=== PATIENT | male | born 1955 | race Caucasian/White ===

== ENCOUNTER 2018-09-25 10:42 | Inpatient (IN) | payer MEDICAID ==
[2018-09-25] VITALS (11 sets, daily range): BP systolic 95–116; BP diastolic 48–60
[~2018-09-25] VITALS: Ht 170.2 cm; Wt 48.6 kg
[2018-09-25] MEDS ORDERED: SODIUM CHLORIDE 0.9% 1,000 ML IV ONE ×2 (11:31→13:12)
[2018-09-25 12:19] LABS: CLARITY URINE TURBID (CLEAR); COLOR URINE AMBER (YELLOW); KETONES URINE NEGATIVE (NEGATIVE); LEUKOCYTE ESTERASE URINE 3+ (NEGATIVE); NITRITE URINE NEGATIVE (NEGATIVE); OCCULT BLOOD URINE 3+ (NEGATIVE); PH URINE 8.5 (4.5-8.0); PROTEIN URINE 3+ (NEGATIVE); SPECIFIC GRAVITY URINE 1.015 (1.005-1.030)
[2018-09-25] MEDS ORDERED: VANCOMYCIN 1 G PREMIX 200 ML IV ONE (12:30)
[2018-09-25] MEDS ORDERED: SODIUM CHLORIDE 0.9% 1000ML BAG (SEPSIS BOLUS) IV ONE (12:30)
[2018-09-25] MEDS ORDERED: PIPERACILLIN/TAZ 3.375G PREMIX 50 ML IV ONE (12:30)
[2018-09-25 13:02] LABS: HEMATOCRIT. 34.7 % (42.0-52.0); HEMOGLOBIN. 11.7 g/dL (14.0-18.0); MEAN CORPUSCULAR VOLUME 91.5 fL (80.0-94.0); MEAN PLATELET VOLUME 8.7 fl (7.4-10.4); RED BLOOD CELL COUNT 3.79 mill/uL (4.7-6.1); RED CELL DISTRIBUTION WIDTH 15.5 % (11.6-14.6)
[2018-09-25 13:05] LABS: CHLORIDE 106 mEq/L (98-107)
[2018-09-25 13:06] LABS: INR 1.3; PROTHROMBIN TIME 12.7 sec (9.1-11.1)
[2018-09-25 13:09] LABS: ETHANOL BLOOD < 10 mg/dL
[2018-09-25 13:09] LABS: *AMPHETAMINES SCREEN URINE NEGATIVE (NEGATIVE); *BARBITURATES SCREEN URINE NEGATIVE (NEGATIVE); CANNABINOID URINE SCREEN NEGATIVE (NEGATIVE); METHADONE URINE SCREEN NEGATIVE (NEGATIVE); OPIATES URINE SCREEN NEGATIVE (NEGATIVE); PHENCYCLIDINE URINE SCREEN NEGATIVE (NEGATIVE)
[2018-09-25 13:11] LABS: *BENZODIAZEPINES SCREEN URINE NEGATIVE (NEGATIVE)
[2018-09-25 13:12] LABS: *COCAINE SCREEN URINE NEGATIVE (NEGATIVE)
[2018-09-25 13:41] LABS: PLATELET ESTIMATE DECREASED
[2018-09-25 13:48] LABS: PLATELET 71 x1000/uL (130-400)
[2018-09-25] MEDS ORDERED: CEFEPIME 1,000 MG in DEXTROSE 5% WATER 50 ML IV SCH (15:30)
[2018-09-25] MEDS ORDERED: NOREPINEPHRINE 4MG/250ML PMX 250 ML IV SCH (15:30)
[2018-09-25] MEDS ORDERED: ONDANSETRON HCL 4MG/2ML INJ IV PRN (15:30)
[2018-09-25] MEDS ORDERED: DEXT 5%/0.45% NACL 1000ML 1,000 ML IV SCH (15:30)
[2018-09-25] MEDS ORDERED: NOREPINEPHRINE 4 MG in DEXT 5% WATER 246 ML IV ONE (15:45)
[2018-09-25] MEDS ORDERED: ACETAMINOPHEN 650MG SUPP PR PRN (17:00)
[2018-09-25] MEDS ORDERED: IPRATROPIUM/ALBUTEROL 0.5-3(2.5)MG/3ML NEB HHN PRN (17:00)
[2018-09-25] MEDS ORDERED: TRUVADA NG SCH (17:15)
[2018-09-25 18:01] LABS: BG BASE EXCESS -8.8 mmol/L (-2.0-2.0); BG DEOXYHEMOGLOBIN 3.4 % (0.0-5.0); BG FRACTION INSPIRED OXYGEN 21; BG HCO3 ACT 14.3 mmol/L (22.0-26.0); BG METHEMOGLOBIN 0.3 % (0.0-1.5); BG OXYGEN SATURATION 96.6 % (92.0-98.5); BG OXYHEMOGLOBIN 95.3 % (94.0-97.0); BG PCO2 24.3 mmHg (35.0-45.0); BG PH 7.388 (7.350-7.450); BG PO2 86.8 mmHg (75.0-100.0); BG SAMPLE SITE RIGHT RADIAL; BG TOTAL HEMOGLOBIN 13.1 g/dL (12.0-18.0); BG VENT MODE ROOM AIR
[2018-09-25] MEDS: MIDODRINE HCL 5MG TABLET PO SCH (21:27)
[2018-09-25] MEDS ORDERED: DEXT 5%/0.9% NACL KCL 30MEQ/L 1,000 ML IV SCH (22:00)
[2018-09-25] MEDS ORDERED: NOREPINEPHRINE 32 MG in DEXT 5% WATER 468 ML IV SCH (22:00)
[2018-09-25] MEDS ORDERED: CEFEPIME 500 MG in DEXTROSE 5% WATER 50 ML IV SCH (23:00)
[2018-09-25] MEDS: BACLOFEN 10MG TABLET NG SCH (23:56)
[2018-09-26] VITALS (56 sets, daily range): BP systolic 82–143; BP diastolic 42–95
[2018-09-26] MEDS: POTASSIUM CHLORIDE INJ 30 MEQ in DEXT 5%/0.9% NACL 1,000 ML IV SCH ×3 (00:58→20:04)
[2018-09-26 05:48] LABS: HEMATOCRIT. 37.1 % (42.0-52.0); HEMOGLOBIN. 12.3 g/dL (14.0-18.0); MEAN CORPUSCULAR HEMOGLOBIN 30.1 pg (28.0-32.0); MEAN CORPUSCULAR VOLUME 90.5 fL (80.0-94.0); MEAN PLATELET VOLUME 8.7 fl (7.4-10.4); PLATELET 82 x1000/uL (130-400); RED CELL DISTRIBUTION WIDTH 15.8 % (11.6-14.6)
[2018-09-26] MEDS: BACLOFEN 10MG TABLET NG SCH ×3 (06:16→22:00)
[2018-09-26 06:19] LABS: PHOSPHORUS 3.8 mg/dL (2.5-4.9)
[2018-09-26] MEDS ORDERED: MIDODRINE HCL 5MG TABLET PO ONE (06:30)
[2018-09-26] MEDS: IPRATROPIUM/ALBUTEROL 0.5-3(2.5)MG/3ML NEB HHN SCH ×3 (07:40→20:24)
[2018-09-26 07:45] LABS: PLATELET ESTIMATE DECREASED
[2018-09-26] MEDS: PANTOPRAZOLE 40MG DR TABLET PO SCH (07:50)
[2018-09-26] MEDS: MIDODRINE HCL 5MG TABLET PO SCH ×3 (08:58→23:10)
[2018-09-26] MEDS ORDERED: PANTOPRAZOLE SODIUM 40 MG/VIAL IV SCH (09:00)
[2018-09-26] MEDS ORDERED: VANCOMYCIN 1 G PREMIX 200 ML IV SCH (11:00)
[2018-09-26] MEDS ORDERED: TRUVADA TABLET NG SCH (14:30)
[2018-09-26] MEDS: ENOXAPARIN 60MG/0.6ML SYR SUBCUT SCH (14:43)
[2018-09-26] MEDS: MORPHINE SULFATE 4 MG/ML CPJ (NOT FOR IM USE) IV PRN (15:56)
[2018-09-26] MEDS: LORAZEPAM 2MG/ML CPJ IV PRN (17:45)
[2018-09-26] MEDS: CEFEPIME 1,000 MG in DEXTROSE 5% WATER 50 ML IV SCH (20:05)
[2018-09-27] VITALS (38 sets, daily range): BP systolic 90–166; BP diastolic 43–107
[2018-09-27] MEDS: IPRATROPIUM/ALBUTEROL 0.5-3(2.5)MG/3ML NEB HHN SCH ×4 (01:25→20:15)
[2018-09-27 06:32] LABS: HEMATOCRIT. 38.6 % (42.0-52.0); HEMOGLOBIN. 12.6 g/dL (14.0-18.0); MEAN CORPUSCULAR VOLUME 92.2 fL (80.0-94.0); MEAN PLATELET VOLUME 9.2 fl (7.4-10.4); PLATELET 75 x1000/uL (130-400); RED BLOOD CELL COUNT 4.19 mill/uL (4.7-6.1); RED CELL DISTRIBUTION WIDTH 16.3 % (11.6-14.6)
[2018-09-27] MEDS: VANCOMYCIN 750 MG PREMIX 150 ML IV SCH (07:00)
[2018-09-27] MEDS: BACLOFEN 10MG TABLET NG SCH ×3 (07:01→21:17)
[2018-09-27] MEDS: MIDODRINE HCL 5MG TABLET PO SCH ×3 (07:02→21:17)
[2018-09-27 07:06] LABS: FOLIC ACID (FOLATE) SERUM 4.3 ng/mL (>5.38)
[2018-09-27] MEDS: PANTOPRAZOLE 40MG DR TABLET PO SCH (07:50)
[2018-09-27 08:17] LABS: PLATELET ESTIMATE DECREASED
[2018-09-27] MEDS: POTASSIUM CHLORIDE INJ 30 MEQ in DEXT 5%/0.9% NACL 1,000 ML IV SCH (08:55)
[2018-09-27 09:10] LABS: ABSOLUTE EOSINOPHILS 0.2 x10E3/uL (0.0-0.4); ABSOLUTE LYMPHOCYTES 0.5 x10E3/uL (0.7-3.1); ABSOLUTE MONOCYTES 0.8 x10E3/uL (0.1-0.9); BASOPHILS 0 % (Not Estab.); HEMATOCRIT 35.3 % (37.5-51.0); HEMATOLOGY COMMENT Note: (.); HEMOGLOBIN 12.2 g/dL (13.0-17.7); IMMATURE GRANULOCYTES 1 % (Not Estab.); IMMATURE GRANULOCYTES ABSOLUTE 0.1 x10E3/uL (0.0-0.1); LYMPHOCYTES 3 % (Not Estab.); MEAN CORPUSCULAR HEMOGLOBIN 30.2 pg (26.6-33.0); MEAN CORPUSCULAR HGB CONC. 34.6 g/dL (31.5-35.7); MEAN CORPUSCULAR VOLUME 87 fL (79-97); MONOCYTES 6 % (Not Estab.); NEUTROPHILS 89 % (Not Estab.); PLATELETS 89 x10E3/uL (150-379); RBC 4.04 x10E6/uL (4.14-5.80); RED CELL DISTRIBUTION WIDTH 16.2 % (12.3-15.4); WBC 14.5 x10E3/uL (3.4-10.8)
[2018-09-27] MEDS: PANTOPRAZOLE SODIUM 40 MG/VIAL IV SCH (09:51)
[2018-09-27] MEDS: LORAZEPAM 2MG/ML CPJ IV PRN (11:15)
[2018-09-27 13:11] LABS: % CD 3 POS. LYMPHOCYTES 64.1 % (57.5-86.2); % CD 4 POS. LYMPHOCYTES 17.2 % (30.8-58.5); % CD 8 POS. LYMPH 45.7 % (12.0-35.5); ABSOLUTE CD 3 321 /uL (622-2402); ABSOLUTE CD 4 HELPER 86 /uL (359-1519); ABSOLUTE CD 8 SUPPRESSOR 229 /uL (109-897); CD4/CD8 RATIO 0.38 (0.92-3.72)
[2018-09-27] MEDS: POTASSIUM CHLORIDE INJ 30 MEQ, SODIUM BICARBONATE 50 MEQ in DEXTROSE 5% WATER 1,000 ML IV SCH (13:26)
[2018-09-27] MEDS: ENOXAPARIN 60MG/0.6ML SYR SUBCUT SCH (15:00)
[2018-09-27] MEDS ORDERED: ASCORBIC ACID 500MG/5ML 120ML PO SCH (15:00)
[2018-09-27] MEDS: ZINC SULFATE 220 MG ( 50 ) CAPSULE PO SCH (16:58)
[2018-09-27] MEDS: FOLIC ACID 1MG TABLET PO SCH (16:58)
[2018-09-27] MEDS: ASCORBIC ACID 500 MG TABLET NG SCH (16:58)
[2018-09-27] MEDS: THIAMINE HCL 100MG TABLET PO SCH (16:59)
[2018-09-27] MEDS: FOLIC ACID/VITAMIN B COMP W-C TABLET NG SCH (16:59)
[2018-09-27] MEDS: CEFEPIME 1,000 MG in DEXTROSE 5% WATER 50 ML IV SCH (20:59)
[2018-09-27] MEDS: MORPHINE SULFATE 4 MG/ML CPJ (NOT FOR IM USE) IV PRN (21:48)
[2018-09-28] VITALS (77 sets, daily range): BP systolic 104–155; BP diastolic 48–101
[2018-09-28] MEDS: POTASSIUM CHLORIDE INJ 30 MEQ, SODIUM BICARBONATE 50 MEQ in DEXTROSE 5% WATER 1,000 ML IV SCH (00:27)
[2018-09-28] MEDS: VANCOMYCIN 750 MG PREMIX 150 ML IV SCH ×2 (00:27→17:30)
[2018-09-28] MEDS: IPRATROPIUM/ALBUTEROL 0.5-3(2.5)MG/3ML NEB HHN SCH ×4 (01:06→20:02)
[2018-09-28] MEDS: BACLOFEN 10MG TABLET NG SCH ×3 (05:39→22:05)
[2018-09-28] MEDS: MIDODRINE HCL 5MG TABLET PO SCH ×3 (05:41→22:05)
[2018-09-28 05:45] LABS: HEMOGLOBIN. 11.3 g/dL (14.0-18.0); MEAN CORPUSCULAR HEMOGLOBIN 30.3 pg (28.0-32.0); MEAN CORPUSCULAR VOLUME 91.2 fL (80.0-94.0); MEAN PLATELET VOLUME 8.6 fl (7.4-10.4); PLATELET 54 x1000/uL (130-400); RED BLOOD CELL COUNT 3.73 mill/uL (4.7-6.1); RED CELL DISTRIBUTION WIDTH 16.4 % (11.6-14.6)
[2018-09-28 05:56] LABS: INR 1.2; PROTHROMBIN TIME 11.7 sec (9.1-11.1)
[2018-09-28 06:14] LABS: PHOSPHORUS 1.2 mg/dL (2.5-4.9)
[2018-09-28 06:58] LABS: PLATELET ESTIMATE DECREASED
[2018-09-28] MEDS: DEXT 5%/0.2% NACL 1,000 ML IV SCH ×2 (08:45→22:07)
[2018-09-28] MEDS: THIAMINE HCL 100MG TABLET PO SCH (09:00)
[2018-09-28] MEDS: ZINC SULFATE 220 MG ( 50 ) CAPSULE PO SCH (09:00)
[2018-09-28] MEDS: FOLIC ACID 1MG TABLET PO SCH (09:00)
[2018-09-28] MEDS: FOLIC ACID/VITAMIN B COMP W-C TABLET NG SCH (09:00)
[2018-09-28] MEDS: ASCORBIC ACID 500 MG TABLET NG SCH (09:00)
[2018-09-28] MEDS ORDERED: POTASSIUM PHOS,M-BASIC-D-BASIC 30 MMOL in DEXT 5% WATER 500 ML IV NR (10:00)
[2018-09-28] MEDS: PANTOPRAZOLE SODIUM 40 MG/VIAL IV SCH (10:25)
[2018-09-28] MEDS ORDERED: SODIUM CHLORIDE 0.9% 10ML VIAL ONE (10:28)
[2018-09-28] MEDS ORDERED: SIMETHICONE 40 MG/0.6 ML 30ML ONE (10:28)
[2018-09-28] MEDS ORDERED: MIDAZOLAM HCL 5 MG/5 ML VIAL ONE (11:20)
[2018-09-28] MEDS ORDERED: FENTANYL CITRATE/PF 50MCG/ML 2ML VIAL ONE (11:21)
[2018-09-28] MEDS ORDERED: MIDAZOLAM HCL 5 MG/5 ML VIAL IV PRN (11:50)
[2018-09-28] MEDS: MORPHINE SULFATE 4 MG/ML CPJ (NOT FOR IM USE) IV PRN (12:51)
[2018-09-28] MEDS: ENOXAPARIN 60MG/0.6ML SYR SUBCUT SCH (15:00)
[2018-09-28] MEDS: MEROPENEM 500 MG in SODIUM CHLORIDE 0.9% 50 ML IV SCH ×2 (15:19→22:05)
[2018-09-29] VITALS (19 sets, daily range): BP systolic 118–154; BP diastolic 60–77
[2018-09-29] MEDS: IPRATROPIUM/ALBUTEROL 0.5-3(2.5)MG/3ML NEB HHN SCH ×4 (01:22→22:24)
[2018-09-29 05:59] LABS: HEMATOCRIT. 34.8 % (42.0-52.0); HEMOGLOBIN. 11.6 g/dL (14.0-18.0); MEAN CORPUSCULAR HEMOGLOBIN 30.3 pg (28.0-32.0); MEAN PLATELET VOLUME 8.9 fl (7.4-10.4); RED BLOOD CELL COUNT 3.82 mill/uL (4.7-6.1); RED CELL DISTRIBUTION WIDTH 16.2 % (11.6-14.6)
[2018-09-29] MEDS: BACLOFEN 10MG TABLET NG SCH ×3 (06:03→21:43)
[2018-09-29] MEDS: MEROPENEM 500 MG in SODIUM CHLORIDE 0.9% 50 ML IV SCH ×3 (06:03→21:51)
[2018-09-29] MEDS: MIDODRINE HCL 5MG TABLET PO SCH ×3 (06:04→21:44)
[2018-09-29 06:23] LABS: PLATELET 41 x1000/uL (130-400)
[2018-09-29 06:25] LABS: PHOSPHORUS 2.2 mg/dL (2.5-4.9)
[2018-09-29] MEDS: ENOXAPARIN 60MG/0.6ML SYR SUBCUT SCH ×2 (09:50→21:43)
[2018-09-29] MEDS: PANTOPRAZOLE SODIUM 40 MG/VIAL IV SCH (09:51)
[2018-09-29] MEDS: ASCORBIC ACID 500 MG TABLET NG SCH (09:51)
[2018-09-29] MEDS: ZINC SULFATE 220 MG ( 50 ) CAPSULE PO SCH (09:51)
[2018-09-29] MEDS: FOLIC ACID 1MG TABLET PO SCH (09:51)
[2018-09-29] MEDS: SULFAMETHOXAZOLE/TRIMETHOPRIM 800/160MG TABLET GT SCH (09:51)
[2018-09-29] MEDS: THIAMINE HCL 100MG TABLET PO SCH (09:51)
[2018-09-29] MEDS: FOLIC ACID/VITAMIN B COMP W-C TABLET NG SCH (09:51)
[2018-09-29 10:33] LABS: PLATELET ESTIMATE MARKEDLY DECREASED
[2018-09-29] MEDS: DEXT 5%/0.2% NACL 1,000 ML IV SCH (12:24)
[2018-09-29] MEDS: VANCOMYCIN 750 MG PREMIX 150 ML IV SCH (12:30)
[2018-09-30] VITALS (7 sets, daily range): BP systolic 103–146; BP diastolic 59–72
[2018-09-30] MEDS: DEXT 5%/0.2% NACL 1,000 ML IV SCH ×3 (01:39→20:52)
[2018-09-30] MEDS: IPRATROPIUM/ALBUTEROL 0.5-3(2.5)MG/3ML NEB HHN SCH ×5 (01:55→20:06)
[2018-09-30] MEDS: BACLOFEN 10MG TABLET NG SCH ×3 (06:10→23:37)
[2018-09-30] MEDS: MIDODRINE HCL 5MG TABLET PO SCH ×3 (06:10→23:19)
[2018-09-30] MEDS: VANCOMYCIN 750 MG PREMIX 150 ML IV SCH (06:10)
[2018-09-30] MEDS: MEROPENEM 500 MG in SODIUM CHLORIDE 0.9% 50 ML IV SCH ×3 (06:10→23:20)
[2018-09-30 07:53] LABS: HEMATOCRIT. 33.5 % (42.0-52.0); HEMOGLOBIN. 11.3 g/dL (14.0-18.0); MEAN CORPUSCULAR HEMOGLOBIN 30.2 pg (28.0-32.0); MEAN CORPUSCULAR VOLUME 89.2 fL (80.0-94.0); MEAN PLATELET VOLUME 9.1 fl (7.4-10.4); PLATELET 70 x1000/uL (130-400); RED BLOOD CELL COUNT 3.75 mill/uL (4.7-6.1); RED CELL DISTRIBUTION WIDTH 15.5 % (11.6-14.6)
[2018-09-30 08:07] LABS: CHLORIDE 108 mEq/L (98-107)
[2018-09-30 08:13] LABS: PHOSPHORUS 1.5 mg/dL (2.5-4.9)
[2018-09-30] MEDS: PANTOPRAZOLE SODIUM 40 MG/VIAL IV SCH (09:06)
[2018-09-30] MEDS: THIAMINE HCL 100MG TABLET PO SCH (09:06)
[2018-09-30] MEDS: ASCORBIC ACID 500 MG TABLET NG SCH (09:06)
[2018-09-30] MEDS: ZINC SULFATE 220 MG ( 50 ) CAPSULE PO SCH (09:06)
[2018-09-30] MEDS: ENOXAPARIN 60MG/0.6ML SYR SUBCUT SCH ×2 (09:06→20:52)
[2018-09-30] MEDS: SULFAMETHOXAZOLE/TRIMETHOPRIM 800/160MG TABLET GT SCH (09:06)
[2018-09-30] MEDS: FOLIC ACID 1MG TABLET PO SCH (09:06)
[2018-09-30] MEDS: FOLIC ACID/VITAMIN B COMP W-C TABLET NG SCH (09:06)
[2018-09-30 10:28] LABS: PLATELET ESTIMATE DECREASED
[2018-09-30] MEDS ORDERED: POTASSIUM PHOS,M-BASIC-D-BASIC 30 MMOL in DEXT 5% WATER 500 ML IV NR (20:00)
[2018-09-30] MEDS ORDERED: DILTIAZEM HCL 125 MG in DEXT 5% WATER 100 ML IV PRN (22:00)
[2018-10-01] VITALS (10 sets, daily range): BP systolic 98–125; BP diastolic 50–63
[2018-10-01] MEDS: IPRATROPIUM/ALBUTEROL 0.5-3(2.5)MG/3ML NEB HHN SCH ×4 (01:52→21:11)
[2018-10-01] MEDS: MEROPENEM 500 MG in SODIUM CHLORIDE 0.9% 50 ML IV SCH ×3 (06:20→20:35)
[2018-10-01] MEDS: BACLOFEN 10MG TABLET NG SCH ×3 (06:20→20:31)
[2018-10-01] MEDS: MIDODRINE HCL 5MG TABLET PO SCH ×3 (06:21→20:30)
[2018-10-01 06:44] LABS: HEMATOCRIT. 30.7 % (42.0-52.0); HEMOGLOBIN. 10.4 g/dL (14.0-18.0); MEAN CORPUSCULAR HEMOGLOBIN 30.2 pg (28.0-32.0); MEAN CORPUSCULAR VOLUME 89.4 fL (80.0-94.0); MEAN PLATELET VOLUME 8.7 fl (7.4-10.4); PLATELET 102 x1000/uL (130-400); RED BLOOD CELL COUNT 3.43 mill/uL (4.7-6.1); RED CELL DISTRIBUTION WIDTH 15.9 % (11.6-14.6)
[2018-10-01 07:35] LABS: CHLORIDE 110 mEq/L (98-107)
[2018-10-01 07:43] LABS: PHOSPHORUS 4.5 mg/dL (2.5-4.9)
[2018-10-01] MEDS: FOLIC ACID 1MG TABLET PO SCH (09:41)
[2018-10-01] MEDS: FOLIC ACID/VITAMIN B COMP W-C TABLET NG SCH (09:41)
[2018-10-01] MEDS: ZINC SULFATE 220 MG ( 50 ) CAPSULE PO SCH (09:41)
[2018-10-01] MEDS: ASCORBIC ACID 500 MG TABLET NG SCH (09:41)
[2018-10-01] MEDS: SULFAMETHOXAZOLE/TRIMETHOPRIM 800/160MG TABLET GT SCH (09:41)
[2018-10-01] MEDS: THIAMINE HCL 100MG TABLET PO SCH (09:41)
[2018-10-01] MEDS: ENOXAPARIN 60MG/0.6ML SYR SUBCUT SCH ×2 (09:47→20:29)
[2018-10-01 13:20] LABS: PLATELET ESTIMATE DECREASED
[2018-10-01 13:28] LABS: T4 FREE 1.33 ng/dL (0.76-1.46)
[2018-10-01 13:51] LABS: FOLIC ACID (FOLATE) SERUM 17.1 ng/mL (>5.38)
[2018-10-01] MEDS: DILTIAZEM HCL 60MG TABLET PO SCH ×2 (13:55→20:31)
[2018-10-01] MEDS: DEXT 5%/0.2% NACL 1,000 ML IV SCH (16:40)
[2018-10-01] MEDS: PANTOPRAZOLE SODIUM 40 MG/VIAL IV SCH (16:40)
[2018-10-02] VITALS (9 sets, daily range): BP systolic 91–124; BP diastolic 48–67
[2018-10-02] MEDS: IPRATROPIUM/ALBUTEROL 0.5-3(2.5)MG/3ML NEB HHN SCH ×4 (00:54→21:17)
[2018-10-02] MEDS: DILTIAZEM HCL 60MG TABLET PO SCH (05:34)
[2018-10-02] MEDS: MIDODRINE HCL 5MG TABLET PO SCH ×3 (05:34→22:22)
[2018-10-02] MEDS: BACLOFEN 10MG TABLET NG SCH ×3 (05:34→22:22)
[2018-10-02] MEDS: MEROPENEM 500 MG in SODIUM CHLORIDE 0.9% 50 ML IV SCH ×3 (05:34→22:23)
[2018-10-02] MEDS: DEXT 5%/0.2% NACL 1,000 ML IV SCH (05:35)
[2018-10-02 07:25] LABS: BASOPHILS % 0.3 % (0.0-2.0); EOSINOPHILS % 1.8 % (0.0-5.0); HEMOGLOBIN. 9.7 g/dL (14.0-18.0); MEAN CORPUSCULAR HEMOGLOBIN 29.9 pg (28.0-32.0); MEAN CORPUSCULAR VOLUME 89.3 fL (80.0-94.0); MEAN PLATELET VOLUME 8.1 fl (7.4-10.4); MONOCYTES % 9.6 % (2.0-8.0); NEUTROPHILS % 71.3 % (40.0-76.0); PLATELET 151 x1000/uL (130-400); RED BLOOD CELL COUNT 3.25 mill/uL (4.7-6.1); RED CELL DISTRIBUTION WIDTH 15.6 % (11.6-14.6)
[2018-10-02 08:05] LABS: CHLORIDE 108 mEq/L (98-107)
[2018-10-02 08:16] LABS: PHOSPHORUS 2.5 mg/dL (2.5-4.9)
[2018-10-02] MEDS: FOLIC ACID/VITAMIN B COMP W-C TABLET NG SCH (09:39)
[2018-10-02] MEDS: SULFAMETHOXAZOLE/TRIMETHOPRIM 800/160MG TABLET GT SCH (09:39)
[2018-10-02] MEDS: ZINC SULFATE 220 MG ( 50 ) CAPSULE PO SCH (09:39)
[2018-10-02] MEDS: FOLIC ACID 1MG TABLET PO SCH (09:39)
[2018-10-02] MEDS: ASCORBIC ACID 500 MG TABLET NG SCH (09:39)
[2018-10-02] MEDS: PANTOPRAZOLE SODIUM 40 MG/VIAL IV SCH (09:39)
[2018-10-02] MEDS: THIAMINE HCL 100MG TABLET PO SCH (09:39)
[2018-10-02] MEDS: ENOXAPARIN 60MG/0.6ML SYR SUBCUT SCH ×2 (09:40→20:57)
[2018-10-02] MEDS ORDERED: POTASSIUM CHLORIDE 20MEQ TABLET SR PO SCH (11:45)
[2018-10-02] MEDS: LOSARTAN POTASSIUM 25 MG TABLET PO SCH (12:55)
[2018-10-02] MEDS: CARVEDILOL 3.125 MG TABLET PO SCH ×2 (12:55→20:57)
[2018-10-03] VITALS (9 sets, daily range): BP systolic 92–134; BP diastolic 48–69
[2018-10-03] MEDS: IPRATROPIUM/ALBUTEROL 0.5-3(2.5)MG/3ML NEB HHN SCH ×4 (02:11→21:32)
[2018-10-03] MEDS: MEROPENEM 500 MG in SODIUM CHLORIDE 0.9% 50 ML IV SCH ×3 (04:43→21:50)
[2018-10-03] MEDS: MIDODRINE HCL 5MG TABLET PO SCH ×3 (04:43→21:51)
[2018-10-03] MEDS: BACLOFEN 10MG TABLET NG SCH ×3 (04:43→21:50)
[2018-10-03 05:51] LABS: BASOPHILS % 0.6 % (0.0-2.0); HEMATOCRIT. 29.8 % (42.0-52.0); LYMPHOCYTES % 16.7 % (20.0-50.0); MEAN CORPUSCULAR HEMOGLOBIN 29.9 pg (28.0-32.0); MEAN CORPUSCULAR VOLUME 89.7 fL (80.0-94.0); MONOCYTES % 8.8 % (2.0-8.0); NEUTROPHILS % 71.9 % (40.0-76.0); PLATELET 178 x1000/uL (130-400); RED BLOOD CELL COUNT 3.32 mill/uL (4.7-6.1); RED CELL DISTRIBUTION WIDTH 15.6 % (11.6-14.6)
[2018-10-03 06:51] LABS: CHLORIDE 110 mEq/L (98-107)
[2018-10-03 07:09] LABS: PHOSPHORUS 2.4 mg/dL (2.5-4.9)
[2018-10-03] MEDS: LOSARTAN POTASSIUM 25 MG TABLET PO SCH (08:55)
[2018-10-03] MEDS: ASCORBIC ACID 500 MG TABLET NG SCH (08:55)
[2018-10-03] MEDS: FOLIC ACID 1MG TABLET PO SCH (08:55)
[2018-10-03] MEDS: SULFAMETHOXAZOLE/TRIMETHOPRIM 800/160MG TABLET GT SCH (08:55)
[2018-10-03] MEDS: FOLIC ACID/VITAMIN B COMP W-C TABLET NG SCH (08:55)
[2018-10-03] MEDS: THIAMINE HCL 100MG TABLET PO SCH (08:56)
[2018-10-03] MEDS: ENOXAPARIN 60MG/0.6ML SYR SUBCUT SCH ×2 (08:56→21:50)
[2018-10-03] MEDS: CARVEDILOL 3.125 MG TABLET PO SCH ×2 (08:56→21:00)
[2018-10-03] MEDS: PANTOPRAZOLE SODIUM 40 MG/VIAL IV SCH (08:57)
[2018-10-03] MEDS: ZINC SULFATE 220 MG ( 50 ) CAPSULE PO SCH (09:04)
[2018-10-04] VITALS (11 sets, daily range): BP systolic 80–127; BP diastolic 40–63
[2018-10-04] MEDS: IPRATROPIUM/ALBUTEROL 0.5-3(2.5)MG/3ML NEB HHN SCH ×4 (00:44→20:57)
[2018-10-04] MEDS: MIDODRINE HCL 5MG TABLET PO SCH ×3 (05:02→21:23)
[2018-10-04] MEDS: MEROPENEM 500 MG in SODIUM CHLORIDE 0.9% 50 ML IV SCH ×3 (05:02→21:23)
[2018-10-04] MEDS: BACLOFEN 10MG TABLET NG SCH ×3 (05:02→21:23)
[2018-10-04 06:49] LABS: CHLORIDE 111 mEq/L (98-107)
[2018-10-04 07:14] LABS: BASOPHILS % 0.5 % (0.0-2.0); EOSINOPHILS % 1.4 % (0.0-5.0); HEMATOCRIT. 30.4 % (42.0-52.0); LYMPHOCYTES % 15.8 % (20.0-50.0); MEAN CORPUSCULAR HEMOGLOBIN 29.6 pg (28.0-32.0); MEAN CORPUSCULAR VOLUME 90.3 fL (80.0-94.0); MEAN PLATELET VOLUME 8.3 fl (7.4-10.4); MONOCYTES % 8.2 % (2.0-8.0); NEUTROPHILS % 74.1 % (40.0-76.0); PLATELET 200 x1000/uL (130-400); RED BLOOD CELL COUNT 3.37 mill/uL (4.7-6.1); RED CELL DISTRIBUTION WIDTH 15.8 % (11.6-14.6)
[2018-10-04] MEDS: SULFAMETHOXAZOLE/TRIMETHOPRIM 800/160MG TABLET GT SCH (09:21)
[2018-10-04] MEDS: ASCORBIC ACID 500 MG TABLET NG SCH (09:21)
[2018-10-04] MEDS: FOLIC ACID 1MG TABLET PO SCH (09:21)
[2018-10-04] MEDS: ZINC SULFATE 220 MG ( 50 ) CAPSULE PO SCH (09:21)
[2018-10-04] MEDS: PANTOPRAZOLE SODIUM 40 MG/VIAL IV SCH (09:21)
[2018-10-04] MEDS: LOSARTAN POTASSIUM 25 MG TABLET PO SCH (09:21)
[2018-10-04] MEDS: FOLIC ACID/VITAMIN B COMP W-C TABLET NG SCH (09:21)
[2018-10-04] MEDS: CARVEDILOL 3.125 MG TABLET PO SCH ×2 (09:21→21:00)
[2018-10-04] MEDS: THIAMINE HCL 100MG TABLET PO SCH (09:21)
[2018-10-04] MEDS: ENOXAPARIN 60MG/0.6ML SYR SUBCUT SCH ×2 (09:21→21:00)
[2018-10-04] MEDS ORDERED: LIDOCAINE HCL 1% 20ML VIAL (Pyxis) INJ ONE (13:24)
[2018-10-04] MEDS ORDERED: SODIUM BICARBONATE 4% (2.4MEQ) 5ML VIAL IV ONE (13:24)
[2018-10-05] VITALS: BP 94/51
[2018-10-05] MEDS: IPRATROPIUM/ALBUTEROL 0.5-3(2.5)MG/3ML NEB HHN SCH ×3 (01:14→13:30)
[2018-10-05 04:00] VITALS: BP 92/51
[2018-10-05] MEDS: MIDODRINE HCL 5MG TABLET PO SCH ×3 (06:01→21:25)
[2018-10-05] MEDS: BACLOFEN 10MG TABLET NG SCH ×3 (06:01→21:25)
[2018-10-05] MEDS: MEROPENEM 500 MG in SODIUM CHLORIDE 0.9% 50 ML IV SCH ×3 (06:01→21:25)
[2018-10-05 08:00] VITALS: BP 95/49
[2018-10-05] MEDS: LOSARTAN POTASSIUM 25 MG TABLET PO SCH (09:00)
[2018-10-05] MEDS: CARVEDILOL 3.125 MG TABLET PO SCH ×2 (09:00→21:00)
[2018-10-05] MEDS: SULFAMETHOXAZOLE/TRIMETHOPRIM 800/160MG TABLET GT SCH (11:03)
[2018-10-05] MEDS: FOLIC ACID/VITAMIN B COMP W-C TABLET NG SCH (11:13)
[2018-10-05] MEDS: PANTOPRAZOLE SODIUM 40 MG/VIAL IV SCH (11:13)
[2018-10-05] MEDS: ZINC SULFATE 220 MG ( 50 ) CAPSULE PO SCH (11:14)
[2018-10-05] MEDS: ASCORBIC ACID 500 MG TABLET NG SCH (11:14)
[2018-10-05] MEDS: THIAMINE HCL 100MG TABLET PO SCH (11:14)
[2018-10-05] MEDS: FOLIC ACID 1MG TABLET PO SCH (11:14)
[2018-10-05] MEDS: ENOXAPARIN 60MG/0.6ML SYR SUBCUT SCH ×2 (11:16→21:55)
[2018-10-05 12:00] VITALS: BP 107/56
[2018-10-05 12:48] LABS: BASOPHILS % 0.3 % (0.0-2.0); EOSINOPHILS % 1.1 % (0.0-5.0); HEMATOCRIT. 28.8 % (42.0-52.0); HEMOGLOBIN. 9.3 g/dL (14.0-18.0); LYMPHOCYTES % 17.9 % (20.0-50.0); MEAN CORPUSCULAR HEMOGLOBIN 29.5 pg (28.0-32.0); MEAN CORPUSCULAR VOLUME 91.4 fL (80.0-94.0); MEAN PLATELET VOLUME 7.8 fl (7.4-10.4); MONOCYTES % 12.1 % (2.0-8.0); NEUTROPHILS % 68.6 % (40.0-76.0); PLATELET 214 x1000/uL (130-400); RED BLOOD CELL COUNT 3.15 mill/uL (4.7-6.1); RED CELL DISTRIBUTION WIDTH 15.5 % (11.6-14.6)
[2018-10-05 12:50] LABS: CHLORIDE 113 mEq/L (98-107)
[2018-10-05 16:00] VITALS: BP 109/47
[2018-10-05 20:00] VITALS: BP 101/50
[2018-10-06] VITALS (7 sets, daily range): BP systolic 97–111; BP diastolic 46–58
[2018-10-06] MEDS: IPRATROPIUM/ALBUTEROL 0.5-3(2.5)MG/3ML NEB HHN SCH ×3 (02:26→21:44)
[2018-10-06] MEDS: MIDODRINE HCL 5MG TABLET PO SCH ×3 (05:52→21:55)
[2018-10-06] MEDS: BACLOFEN 10MG TABLET NG SCH ×3 (05:52→21:54)
[2018-10-06 06:51] LABS: BASOPHILS % 0.4 % (0.0-2.0); EOSINOPHILS % 1.1 % (0.0-5.0); HEMATOCRIT. 28.1 % (42.0-52.0); HEMOGLOBIN. 9.5 g/dL (14.0-18.0); LYMPHOCYTES % 23.9 % (20.0-50.0); MEAN CORPUSCULAR HEMOGLOBIN 30.5 pg (28.0-32.0); MEAN CORPUSCULAR VOLUME 90.5 fL (80.0-94.0); MEAN PLATELET VOLUME 8.1 fl (7.4-10.4); MONOCYTES % 14.6 % (2.0-8.0); PLATELET 225 x1000/uL (130-400); RED BLOOD CELL COUNT 3.11 mill/uL (4.7-6.1); RED CELL DISTRIBUTION WIDTH 15.8 % (11.6-14.6)
[2018-10-06 07:22] LABS: CHLORIDE 115 mEq/L (98-107)
[2018-10-06] MEDS: FOLIC ACID/VITAMIN B COMP W-C TABLET NG SCH (09:12)
[2018-10-06] MEDS: FOLIC ACID 1MG TABLET PO SCH (09:13)
[2018-10-06] MEDS: PANTOPRAZOLE SODIUM 40 MG/VIAL IV SCH (09:13)
[2018-10-06] MEDS: ASCORBIC ACID 500 MG TABLET NG SCH (09:13)
[2018-10-06] MEDS: ZINC SULFATE 220 MG ( 50 ) CAPSULE PO SCH (09:13)
[2018-10-06] MEDS: THIAMINE HCL 100MG TABLET PO SCH (09:13)
[2018-10-06] MEDS: ENOXAPARIN 60MG/0.6ML SYR SUBCUT SCH ×2 (09:13→21:55)
[2018-10-06] MEDS ORDERED: MEROPENEM 500 MG in SODIUM CHLORIDE 0.9% 50 ML IV SCH (10:45)
[2018-10-06] MEDS: SULFAMETHOXAZOLE/TRIMETHOPRIM 800/160MG TABLET GT SCH (12:30)
[2018-10-06] MEDS: LOSARTAN POTASSIUM 25 MG TABLET PO SCH (12:30)
[2018-10-06] MEDS: CARVEDILOL 3.125 MG TABLET PO SCH ×2 (12:31→21:54)
[2018-10-06] MEDS: MEROPENEM 1000MG in NORMAL SALINE 100ML IV SCH ×2 (12:34→21:55)
[2018-10-06] MEDS ORDERED: NEPVIT NG (16:20)
[2018-10-06] MEDS ORDERED: ASCO500T20 NG (16:20)
[2018-10-06] MEDS ORDERED: FOLI-43 PO (16:20)
[2018-10-06] MEDS ORDERED: OR220 PO (16:20)
[2018-10-06] MEDS ORDERED: THIA100T72 PO (16:20)
[2018-10-06] MEDS ORDERED: MIDO5TAB PO (16:20)
[2018-10-06] MEDS ORDERED: BACL-141 NG (16:20)
[2018-10-06] MEDS ORDERED: COR3 PO (16:20)
[2018-10-06] MEDS ORDERED: LOSA25TA3 PO (16:20)
[2018-10-06] MEDS ORDERED: SULF1TAB44 GT (16:20)
[2018-10-07] VITALS: BP 103/49
[2018-10-07] MEDS: IPRATROPIUM/ALBUTEROL 0.5-3(2.5)MG/3ML NEB HHN SCH ×2 (02:21→09:36)
[2018-10-07 04:00] VITALS: BP 91/45
[2018-10-07] MEDS: MEROPENEM 1000MG in NORMAL SALINE 100ML IV SCH ×3 (05:27→22:05)
[2018-10-07] MEDS: MIDODRINE HCL 5MG TABLET PO SCH ×3 (05:27→22:06)
[2018-10-07] MEDS: BACLOFEN 10MG TABLET NG SCH ×3 (05:28→22:07)
[2018-10-07 07:59] LABS: HEMATOCRIT. 29.1 % (42.0-52.0); HEMOGLOBIN. 9.5 g/dL (14.0-18.0); MEAN CORPUSCULAR HEMOGLOBIN 29.8 pg (28.0-32.0); MEAN CORPUSCULAR VOLUME 91.1 fL (80.0-94.0); MEAN PLATELET VOLUME 7.6 fl (7.4-10.4); PLATELET 254 x1000/uL (130-400); RED BLOOD CELL COUNT 3.19 mill/uL (4.7-6.1)
[2018-10-07 08:00] VITALS: BP 109/54
[2018-10-07 08:05] LABS: CHLORIDE 115 mEq/L (98-107)
[2018-10-07] MEDS: CARVEDILOL 3.125 MG TABLET PO SCH ×2 (09:00→22:07)
[2018-10-07] MEDS: LOSARTAN POTASSIUM 25 MG TABLET PO SCH (09:00)
[2018-10-07] MEDS: ENOXAPARIN 60MG/0.6ML SYR SUBCUT SCH ×3 (09:00→22:10)
[2018-10-07 09:47] LABS: PLATELET ESTIMATE NORMAL
[2018-10-07] MEDS: ASCORBIC ACID 500 MG TABLET NG SCH (10:12)
[2018-10-07] MEDS: ZINC SULFATE 220 MG ( 50 ) CAPSULE PO SCH (10:12)
[2018-10-07] MEDS: FOLIC ACID/VITAMIN B COMP W-C TABLET NG SCH (10:12)
[2018-10-07] MEDS: FOLIC ACID 1MG TABLET PO SCH (10:13)
[2018-10-07] MEDS: THIAMINE HCL 100MG TABLET PO SCH (10:13)
[2018-10-07] MEDS: SULFAMETHOXAZOLE/TRIMETHOPRIM 800/160MG TABLET GT SCH (10:19)
[2018-10-07] MEDS: PANTOPRAZOLE SODIUM 40 MG/VIAL IV SCH (10:19)
[2018-10-07 12:00] VITALS: BP 105/58
[2018-10-07 16:00] VITALS: BP 108/53
[2018-10-07 20:49] VITALS: BP 126/62
[2018-10-08] VITALS: BP 93/51
[2018-10-08 04:00] VITALS: BP 95/52
[2018-10-08] MEDS: MEROPENEM 1000MG in NORMAL SALINE 100ML IV SCH ×3 (05:12→21:43)
[2018-10-08] MEDS: MIDODRINE HCL 5MG TABLET PO SCH ×3 (06:35→21:45)
[2018-10-08] MEDS: BACLOFEN 10MG TABLET NG SCH ×3 (06:35→21:45)
[2018-10-08 07:16] LABS: CHLORIDE 114 mEq/L (98-107)
[2018-10-08 07:26] LABS: HEMATOCRIT. 30.4 % (42.0-52.0); MEAN CORPUSCULAR HEMOGLOBIN 30.2 pg (28.0-32.0); MEAN CORPUSCULAR VOLUME 91.5 fL (80.0-94.0); PLATELET 252 x1000/uL (130-400); RED BLOOD CELL COUNT 3.32 mill/uL (4.7-6.1)
[2018-10-08 08:00] VITALS: BP 101/53
[2018-10-08] MEDS: PANTOPRAZOLE SODIUM 40 MG/VIAL IV SCH (09:10)
[2018-10-08] MEDS: FOLIC ACID/VITAMIN B COMP W-C TABLET NG SCH (09:12)
[2018-10-08] MEDS: SULFAMETHOXAZOLE/TRIMETHOPRIM 800/160MG TABLET GT SCH (09:12)
[2018-10-08] MEDS: ZINC SULFATE 220 MG ( 50 ) CAPSULE PO SCH (09:12)
[2018-10-08] MEDS: THIAMINE HCL 100MG TABLET PO SCH (09:12)
[2018-10-08] MEDS: ENOXAPARIN 60MG/0.6ML SYR SUBCUT SCH ×2 (09:12→21:44)
[2018-10-08] MEDS: LOSARTAN POTASSIUM 25 MG TABLET PO SCH (09:13)
[2018-10-08] MEDS: CARVEDILOL 3.125 MG TABLET PO SCH ×2 (09:13→20:48)
[2018-10-08] MEDS: ASCORBIC ACID 500 MG TABLET NG SCH (09:13)
[2018-10-08] MEDS: FOLIC ACID 1MG TABLET PO SCH (09:13)
[2018-10-08] MEDS: IPRATROPIUM/ALBUTEROL 0.5-3(2.5)MG/3ML NEB HHN SCH ×3 (10:49→20:25)
[2018-10-08 12:14] VITALS: BP 84/39
[2018-10-08 16:00] VITALS: BP 109/62
[2018-10-08 20:19] VITALS: BP 109/61
[2018-10-09 00:54] VITALS: BP 114/60
[2018-10-09] MEDS: IPRATROPIUM/ALBUTEROL 0.5-3(2.5)MG/3ML NEB HHN SCH ×4 (01:43→20:46)
[2018-10-09 04:00] VITALS: BP 96/47
[2018-10-09 05:03] LABS: PLATELET ESTIMATE NORMAL
[2018-10-09] MEDS: MEROPENEM 1000MG in NORMAL SALINE 100ML IV SCH ×3 (05:16→22:09)
[2018-10-09 06:04] LABS: HEMATOCRIT. 27.5 % (42.0-52.0); HEMOGLOBIN. 9.1 g/dL (14.0-18.0); MEAN CORPUSCULAR HEMOGLOBIN 30.1 pg (28.0-32.0); MEAN CORPUSCULAR VOLUME 90.6 fL (80.0-94.0); MEAN PLATELET VOLUME 7.9 fl (7.4-10.4); PLATELET 213 x1000/uL (130-400); RED BLOOD CELL COUNT 3.03 mill/uL (4.7-6.1); RED CELL DISTRIBUTION WIDTH 15.9 % (11.6-14.6)
[2018-10-09 06:11] LABS: CHLORIDE 111 mEq/L (98-107)
[2018-10-09] MEDS: MIDODRINE HCL 5MG TABLET PO SCH ×3 (06:23→21:48)
[2018-10-09] MEDS: BACLOFEN 10MG TABLET NG SCH ×3 (06:23→21:48)
[2018-10-09 08:30] VITALS: BP 122/61
[2018-10-09] MEDS: ZINC SULFATE 220 MG ( 50 ) CAPSULE PO SCH (09:18)
[2018-10-09] MEDS: LOSARTAN POTASSIUM 25 MG TABLET PO SCH (09:18)
[2018-10-09] MEDS: FOLIC ACID 1MG TABLET PO SCH (09:18)
[2018-10-09] MEDS: ASCORBIC ACID 500 MG TABLET NG SCH (09:18)
[2018-10-09] MEDS: THIAMINE HCL 100MG TABLET PO SCH (09:18)
[2018-10-09] MEDS: FOLIC ACID/VITAMIN B COMP W-C TABLET NG SCH (09:18)
[2018-10-09] MEDS: SULFAMETHOXAZOLE/TRIMETHOPRIM 800/160MG TABLET GT SCH (09:18)
[2018-10-09] MEDS: PANTOPRAZOLE SODIUM 40 MG/VIAL IV SCH (09:18)
[2018-10-09] MEDS: CARVEDILOL 3.125 MG TABLET PO SCH ×2 (09:19→21:00)
[2018-10-09] MEDS: ENOXAPARIN 60MG/0.6ML SYR SUBCUT SCH ×2 (09:20→21:49)
[2018-10-09 11:39] LABS: PLATELET ESTIMATE NORMAL
[2018-10-09 12:00] VITALS: BP 94/60
[2018-10-09 16:00] VITALS: BP 107/57
[2018-10-09 20:00] VITALS: BP 91/45
[2018-10-10] VITALS (9 sets, daily range): BP systolic 77–114; BP diastolic 41–97
[2018-10-10] MEDS: IPRATROPIUM/ALBUTEROL 0.5-3(2.5)MG/3ML NEB HHN SCH ×3 (01:25→21:59)
[2018-10-10] MEDS: MIDODRINE HCL 5MG TABLET PO SCH ×3 (06:14→22:00)
[2018-10-10] MEDS: BACLOFEN 10MG TABLET NG SCH ×3 (06:14→22:35)
[2018-10-10] MEDS: MEROPENEM 1000MG in NORMAL SALINE 100ML IV SCH (06:15)
[2018-10-10 07:38] LABS: HEMATOCRIT. 28.9 % (42.0-52.0); HEMOGLOBIN. 9.5 g/dL (14.0-18.0); MEAN CORPUSCULAR HEMOGLOBIN 29.9 pg (28.0-32.0); MEAN CORPUSCULAR VOLUME 91.1 fL (80.0-94.0); MEAN PLATELET VOLUME 7.8 fl (7.4-10.4); PLATELET 209 x1000/uL (130-400); RED BLOOD CELL COUNT 3.17 mill/uL (4.7-6.1); RED CELL DISTRIBUTION WIDTH 15.6 % (11.6-14.6)
[2018-10-10 07:40] LABS: CHLORIDE 109 mEq/L (98-107)
[2018-10-10] MEDS: FOLIC ACID 1MG TABLET PO SCH (11:15)
[2018-10-10] MEDS: ASCORBIC ACID 500 MG TABLET NG SCH (11:15)
[2018-10-10] MEDS: SULFAMETHOXAZOLE/TRIMETHOPRIM 800/160MG TABLET GT SCH (11:15)
[2018-10-10] MEDS: ZINC SULFATE 220 MG ( 50 ) CAPSULE PO SCH (11:16)
[2018-10-10] MEDS: CARVEDILOL 3.125 MG TABLET PO SCH ×2 (11:16→21:00)
[2018-10-10] MEDS: THIAMINE HCL 100MG TABLET PO SCH (11:16)
[2018-10-10] MEDS: FOLIC ACID/VITAMIN B COMP W-C TABLET NG SCH (11:16)
[2018-10-10] MEDS: ENOXAPARIN 60MG/0.6ML SYR SUBCUT SCH ×2 (11:17→21:00)
[2018-10-10] MEDS: PANTOPRAZOLE SODIUM 40 MG/VIAL IV SCH (11:21)
[2018-10-10] MEDS: LOSARTAN POTASSIUM 25 MG TABLET PO SCH (11:30)
[2018-10-10 18:11] LABS: PLATELET ESTIMATE NORMAL
[2018-10-11] VITALS: BP 104/54
[2018-10-11] MEDS: IPRATROPIUM/ALBUTEROL 0.5-3(2.5)MG/3ML NEB HHN SCH ×4 (03:10→21:47)
[2018-10-11 04:00] VITALS: BP 97/45
[2018-10-11] MEDS: BACLOFEN 10MG TABLET NG SCH ×3 (06:08→22:02)
[2018-10-11] MEDS: MIDODRINE HCL 5MG TABLET PO SCH ×3 (06:08→22:02)
[2018-10-11 08:00] VITALS: BP 110/57
[2018-10-11] MEDS: LOSARTAN POTASSIUM 25 MG TABLET PO SCH (09:00)
[2018-10-11] MEDS: SULFAMETHOXAZOLE/TRIMETHOPRIM 800/160MG TABLET GT SCH (10:18)
[2018-10-11] MEDS: THIAMINE HCL 100MG TABLET PO SCH (10:19)
[2018-10-11] MEDS: ASCORBIC ACID 500 MG TABLET NG SCH (10:19)
[2018-10-11] MEDS: PANTOPRAZOLE SODIUM 40 MG/VIAL IV SCH (10:19)
[2018-10-11] MEDS: ZINC SULFATE 220 MG ( 50 ) CAPSULE PO SCH (10:19)
[2018-10-11] MEDS: CARVEDILOL 3.125 MG TABLET PO SCH ×2 (10:20→20:55)
[2018-10-11] MEDS: FOLIC ACID 1MG TABLET PO SCH (10:20)
[2018-10-11] MEDS: FOLIC ACID/VITAMIN B COMP W-C TABLET NG SCH (10:20)
[2018-10-11 12:00] VITALS: BP 80/42
[2018-10-11 16:00] VITALS: BP 87/41
[2018-10-11 20:00] VITALS: BP 93/48
[2018-10-11] MEDS ORDERED: POTASSIUM CHLORIDE 20MEQ/PACKET PO NR (20:00)
[2018-10-11] MEDS: ENOXAPARIN 60MG/0.6ML SYR SUBCUT SCH (21:00)
[2018-10-12] VITALS: BP 122/60
[2018-10-12] MEDS: IPRATROPIUM/ALBUTEROL 0.5-3(2.5)MG/3ML NEB HHN SCH ×4 (01:03→21:35)
[2018-10-12 04:00] VITALS: BP 96/58
[2018-10-12] MEDS: BACLOFEN 10MG TABLET NG SCH ×2 (05:56→17:59)
[2018-10-12] MEDS: MIDODRINE HCL 5MG TABLET PO SCH ×2 (05:56→14:00)
[2018-10-12 06:59] LABS: HEMATOCRIT. 28.7 % (42.0-52.0); HEMOGLOBIN. 9.6 g/dL (14.0-18.0); MEAN CORPUSCULAR HEMOGLOBIN 30.2 pg (28.0-32.0); MEAN CORPUSCULAR VOLUME 90.3 fL (80.0-94.0); PLATELET 179 x1000/uL (130-400); RED BLOOD CELL COUNT 3.18 mill/uL (4.7-6.1); RED CELL DISTRIBUTION WIDTH 15.5 % (11.6-14.6)
[2018-10-12 07:22] LABS: CHLORIDE 110 mEq/L (98-107)
[2018-10-12 08:00] VITALS: BP 135/65
[2018-10-12] MEDS: SULFAMETHOXAZOLE/TRIMETHOPRIM 800/160MG TABLET GT SCH (10:04)
[2018-10-12] MEDS: PANTOPRAZOLE SODIUM 40 MG/VIAL IV SCH (10:04)
[2018-10-12] MEDS: THIAMINE HCL 100MG TABLET PO SCH (10:05)
[2018-10-12] MEDS: FOLIC ACID 1MG TABLET PO SCH (10:05)
[2018-10-12] MEDS: LOSARTAN POTASSIUM 25 MG TABLET PO SCH (10:05)
[2018-10-12] MEDS: ZINC SULFATE 220 MG ( 50 ) CAPSULE PO SCH (10:05)
[2018-10-12] MEDS: ASCORBIC ACID 500 MG TABLET NG SCH (10:05)
[2018-10-12] MEDS: CARVEDILOL 3.125 MG TABLET PO SCH (10:05)
[2018-10-12] MEDS: FOLIC ACID/VITAMIN B COMP W-C TABLET NG SCH (10:05)
[2018-10-12] MEDS: ENOXAPARIN 60MG/0.6ML SYR SUBCUT SCH (10:07)
[2018-10-12 12:00] VITALS: BP 107/47
[2018-10-12 12:55] LABS: PLATELET ESTIMATE NORMAL
[2018-10-12 16:00] VITALS: BP 131/55
[2018-10-12 20:00] VITALS: BP 92/47
[2018-10-13] VITALS: BP 93/46
[2018-10-13] MEDS: BACLOFEN 10MG TABLET NG SCH ×4 (01:42→21:55)
[2018-10-13] MEDS: MIDODRINE HCL 5MG TABLET PO SCH ×4 (01:42→21:55)
[2018-10-13] MEDS: CARVEDILOL 3.125 MG TABLET PO SCH ×3 (01:42→21:00)
[2018-10-13] MEDS: ENOXAPARIN 60MG/0.6ML SYR SUBCUT SCH ×3 (01:43→21:00)
[2018-10-13] MEDS: IPRATROPIUM/ALBUTEROL 0.5-3(2.5)MG/3ML NEB HHN SCH ×4 (02:06→20:55)
[2018-10-13 04:00] VITALS: BP 104/53
[2018-10-13 08:00] VITALS: BP 112/55
[2018-10-13] MEDS: LOSARTAN POTASSIUM 25 MG TABLET PO SCH (09:00)
[2018-10-13 09:17] LABS: HEMATOCRIT. 29.9 % (42.0-52.0); MEAN CORPUSCULAR HEMOGLOBIN 30.6 pg (28.0-32.0); MEAN CORPUSCULAR VOLUME 91.3 fL (80.0-94.0); MEAN PLATELET VOLUME 7.7 fl (7.4-10.4); PLATELET 163 x1000/uL (130-400); RED BLOOD CELL COUNT 3.28 mill/uL (4.7-6.1); RED CELL DISTRIBUTION WIDTH 15.7 % (11.6-14.6)
[2018-10-13 09:25] LABS: CHLORIDE 110 mEq/L (98-107)
[2018-10-13] MEDS: PANTOPRAZOLE SODIUM 40 MG/VIAL IV SCH (09:35)
[2018-10-13] MEDS: FOLIC ACID/VITAMIN B COMP W-C TABLET NG SCH (09:35)
[2018-10-13] MEDS: ZINC SULFATE 220 MG ( 50 ) CAPSULE PO SCH (09:35)
[2018-10-13] MEDS: SULFAMETHOXAZOLE/TRIMETHOPRIM 800/160MG TABLET GT SCH (09:35)
[2018-10-13] MEDS: ASCORBIC ACID 500 MG TABLET NG SCH (09:35)
[2018-10-13] MEDS: THIAMINE HCL 100MG TABLET PO SCH (09:35)
[2018-10-13] MEDS: FOLIC ACID 1MG TABLET PO SCH (09:35)
[2018-10-13 12:00] VITALS: BP 109/39
[2018-10-13 12:55] LABS: PLATELET ESTIMATE NORMAL
[2018-10-13 16:00] VITALS: BP 128/71
[2018-10-13 20:00] VITALS: BP 107/53
[2018-10-14] VITALS: BP 89/44
[2018-10-14 04:00] VITALS: BP 92/49
[2018-10-14] MEDS: IPRATROPIUM/ALBUTEROL 0.5-3(2.5)MG/3ML NEB HHN SCH ×4 (04:32→20:29)
[2018-10-14] MEDS: BACLOFEN 10MG TABLET NG SCH ×3 (06:13→22:18)
[2018-10-14] MEDS: MIDODRINE HCL 5MG TABLET PO SCH ×3 (06:13→22:18)
[2018-10-14 08:00] VITALS: BP 113/57
[2018-10-14] MEDS: ENOXAPARIN 60MG/0.6ML SYR SUBCUT SCH ×2 (09:00→22:18)
[2018-10-14] MEDS: CARVEDILOL 3.125 MG TABLET PO SCH ×2 (09:00→21:00)
[2018-10-14] MEDS ORDERED: PANTOPRAZOLE 40MG DR TABLET PO SCH (09:00)
[2018-10-14] MEDS: LOSARTAN POTASSIUM 25 MG TABLET PO SCH (09:00)
[2018-10-14] MEDS: FOLIC ACID/VITAMIN B COMP W-C TABLET NG SCH (10:05)
[2018-10-14] MEDS: THIAMINE HCL 100MG TABLET PO SCH (10:05)
[2018-10-14] MEDS: ASCORBIC ACID 500 MG TABLET NG SCH (10:05)
[2018-10-14] MEDS: FOLIC ACID 1MG TABLET PO SCH (10:06)
[2018-10-14] MEDS: ZINC SULFATE 220 MG ( 50 ) CAPSULE PO SCH (10:06)
[2018-10-14] MEDS: SULFAMETHOXAZOLE/TRIMETHOPRIM 800/160MG TABLET GT SCH (10:07)
[2018-10-14 12:00] VITALS: BP 90/50
[2018-10-14 16:00] VITALS: BP 102/49
[2018-10-14 20:00] VITALS: BP 100/53
[2018-10-15] VITALS: BP 81/42
[2018-10-15] MEDS: IPRATROPIUM/ALBUTEROL 0.5-3(2.5)MG/3ML NEB HHN SCH ×4 (00:51→20:57)
[2018-10-15 04:00] VITALS: BP 82/44
[2018-10-15] MEDS: MIDODRINE HCL 5MG TABLET PO SCH ×3 (06:09→21:43)
[2018-10-15] MEDS: BACLOFEN 10MG TABLET NG SCH ×3 (06:10→21:43)
[2018-10-15] MEDS: LANSOPRAZOLE 30MG DR CAPSULE GT SCH (06:10)
[2018-10-15 08:00] VITALS: BP 104/51
[2018-10-15] MEDS: LOSARTAN POTASSIUM 25 MG TABLET PO SCH (09:00)
[2018-10-15] MEDS: ENOXAPARIN 60MG/0.6ML SYR SUBCUT SCH ×3 (09:00→21:43)
[2018-10-15] MEDS: CARVEDILOL 3.125 MG TABLET PO SCH ×2 (09:00→21:00)
[2018-10-15] MEDS: SULFAMETHOXAZOLE/TRIMETHOPRIM 800/160MG TABLET GT SCH (09:42)
[2018-10-15] MEDS: FOLIC ACID/VITAMIN B COMP W-C TABLET NG SCH (09:42)
[2018-10-15] MEDS: ZINC SULFATE 220 MG ( 50 ) CAPSULE PO SCH (09:42)
[2018-10-15] MEDS: THIAMINE HCL 100MG TABLET PO SCH (09:43)
[2018-10-15] MEDS: FOLIC ACID 1MG TABLET PO SCH (09:43)
[2018-10-15] MEDS: ASCORBIC ACID 500 MG TABLET NG SCH (09:43)
[2018-10-15 12:00] VITALS: BP 96/50
[2018-10-15 16:00] VITALS: BP 84/41
[2018-10-15 20:00] VITALS: BP 99/53
[2018-10-16] VITALS: BP 112/58
[2018-10-16] MEDS: IPRATROPIUM/ALBUTEROL 0.5-3(2.5)MG/3ML NEB HHN SCH ×3 (01:21→22:01)
[2018-10-16 04:00] VITALS: BP 110/52
[2018-10-16] MEDS: LANSOPRAZOLE 30MG DR CAPSULE GT SCH (05:22)
[2018-10-16] MEDS: BACLOFEN 10MG TABLET NG SCH ×3 (05:22→21:25)
[2018-10-16] MEDS: MIDODRINE HCL 5MG TABLET PO SCH ×3 (05:22→21:25)
[2018-10-16 05:33] LABS: BASOPHILS % 0.3 % (0.0-2.0); EOSINOPHILS % 1.4 % (0.0-5.0); HEMATOCRIT. 28.4 % (42.0-52.0); HEMOGLOBIN. 9.6 g/dL (14.0-18.0); LYMPHOCYTES % 25.2 % (20.0-50.0); MEAN CORPUSCULAR HEMOGLOBIN 30.4 pg (28.0-32.0); MEAN CORPUSCULAR VOLUME 90.1 fL (80.0-94.0); MEAN PLATELET VOLUME 8.2 fl (7.4-10.4); NEUTROPHILS % 65.1 % (40.0-76.0); PLATELET 134 x1000/uL (130-400); RED BLOOD CELL COUNT 3.15 mill/uL (4.7-6.1); RED CELL DISTRIBUTION WIDTH 15.6 % (11.6-14.6)
[2018-10-16 05:49] LABS: CHLORIDE 108 mEq/L (98-107)
[2018-10-16 08:00] VITALS: BP 93/49
[2018-10-16] MEDS: CARVEDILOL 3.125 MG TABLET PO SCH ×2 (09:00→21:00)
[2018-10-16] MEDS: LOSARTAN POTASSIUM 25 MG TABLET PO SCH (09:00)
[2018-10-16] MEDS: FOLIC ACID 1MG TABLET PO SCH (09:57)
[2018-10-16] MEDS: ENOXAPARIN 60MG/0.6ML SYR SUBCUT SCH ×2 (09:57→21:25)
[2018-10-16] MEDS: ASCORBIC ACID 500 MG TABLET NG SCH (09:57)
[2018-10-16] MEDS: FOLIC ACID/VITAMIN B COMP W-C TABLET NG SCH (09:57)
[2018-10-16] MEDS: ZINC SULFATE 220 MG ( 50 ) CAPSULE PO SCH (09:57)
[2018-10-16] MEDS: SULFAMETHOXAZOLE/TRIMETHOPRIM 800/160MG TABLET GT SCH (09:58)
[2018-10-16] MEDS: THIAMINE HCL 100MG TABLET PO SCH (09:58)
[2018-10-16 12:00] VITALS: BP 90/38
[2018-10-16 16:00] VITALS: BP 90/43
[2018-10-16 20:00] VITALS: BP 100/54
[2018-10-17] VITALS: BP 102/56
[2018-10-17] MEDS: IPRATROPIUM/ALBUTEROL 0.5-3(2.5)MG/3ML NEB HHN SCH ×4 (02:00→22:36)
[2018-10-17 04:00] VITALS: BP 100/54
[2018-10-17] MEDS: LANSOPRAZOLE 30MG DR CAPSULE GT SCH (06:41)
[2018-10-17] MEDS: MIDODRINE HCL 5MG TABLET PO SCH ×3 (06:41→21:05)
[2018-10-17] MEDS: BACLOFEN 10MG TABLET NG SCH ×3 (06:41→21:05)
[2018-10-17 08:00] VITALS: BP 109/59
[2018-10-17] MEDS: CARVEDILOL 3.125 MG TABLET PO SCH ×2 (09:00→20:57)
[2018-10-17] MEDS: LOSARTAN POTASSIUM 25 MG TABLET PO SCH (09:00)
[2018-10-17] MEDS: SULFAMETHOXAZOLE/TRIMETHOPRIM 800/160MG TABLET GT SCH (10:09)
[2018-10-17] MEDS: FOLIC ACID/VITAMIN B COMP W-C TABLET NG SCH (10:09)
[2018-10-17] MEDS: ASCORBIC ACID 500 MG TABLET NG SCH (10:09)
[2018-10-17] MEDS: THIAMINE HCL 100MG TABLET PO SCH (10:10)
[2018-10-17] MEDS: FOLIC ACID 1MG TABLET PO SCH (10:10)
[2018-10-17] MEDS: ZINC SULFATE 220 MG ( 50 ) CAPSULE PO SCH (10:10)
[2018-10-17] MEDS: ENOXAPARIN 60MG/0.6ML SYR SUBCUT SCH ×2 (10:11→21:05)
[2018-10-17 12:00] VITALS: BP 131/50
[2018-10-17 16:00] VITALS: BP 102/58
[2018-10-17 20:00] VITALS: BP 88/46
[2018-10-18] VITALS: BP 106/56
[2018-10-18] MEDS: IPRATROPIUM/ALBUTEROL 0.5-3(2.5)MG/3ML NEB HHN SCH ×3 (02:25→20:53)
[2018-10-18 04:00] VITALS: BP 104/62
[2018-10-18] MEDS: LANSOPRAZOLE 30MG DR CAPSULE GT SCH (06:17)
[2018-10-18] MEDS: BACLOFEN 10MG TABLET NG SCH ×3 (06:17→21:01)
[2018-10-18] MEDS: MIDODRINE HCL 5MG TABLET PO SCH ×3 (06:17→21:02)
[2018-10-18 08:00] VITALS: BP 115/61
[2018-10-18] MEDS: ZINC SULFATE 220 MG ( 50 ) CAPSULE PO SCH (08:58)
[2018-10-18] MEDS: LOSARTAN POTASSIUM 25 MG TABLET PO SCH (08:58)
[2018-10-18] MEDS: CARVEDILOL 3.125 MG TABLET PO SCH ×2 (08:58→21:00)
[2018-10-18] MEDS: THIAMINE HCL 100MG TABLET PO SCH (08:58)
[2018-10-18] MEDS: FOLIC ACID/VITAMIN B COMP W-C TABLET NG SCH (08:58)
[2018-10-18] MEDS: SULFAMETHOXAZOLE/TRIMETHOPRIM 800/160MG TABLET GT SCH (08:58)
[2018-10-18] MEDS: ASCORBIC ACID 500 MG TABLET NG SCH (08:58)
[2018-10-18] MEDS: FOLIC ACID 1MG TABLET PO SCH (08:58)
[2018-10-18] MEDS: ENOXAPARIN 60MG/0.6ML SYR SUBCUT SCH ×2 (08:59→21:01)
[2018-10-18 12:00] VITALS: BP 94/48
[2018-10-18 16:00] VITALS: BP 116/60
[2018-10-18 20:00] VITALS: BP 87/45
[2018-10-19] VITALS: BP 98/50
[2018-10-19] MEDS: IPRATROPIUM/ALBUTEROL 0.5-3(2.5)MG/3ML NEB HHN SCH ×4 (01:18→22:37)
[2018-10-19 04:00] VITALS: BP 88/47
[2018-10-19] MEDS: LANSOPRAZOLE 30MG DR CAPSULE GT SCH (06:03)
[2018-10-19] MEDS: MIDODRINE HCL 5MG TABLET PO SCH ×3 (06:03→21:22)
[2018-10-19] MEDS: BACLOFEN 10MG TABLET NG SCH ×3 (06:03→21:22)
[2018-10-19 08:00] VITALS: BP 102/54
[2018-10-19] MEDS: CARVEDILOL 3.125 MG TABLET PO SCH ×2 (09:00→21:22)
[2018-10-19] MEDS: LOSARTAN POTASSIUM 25 MG TABLET PO SCH (09:00)
[2018-10-19] MEDS: SULFAMETHOXAZOLE/TRIMETHOPRIM 800/160MG TABLET GT SCH (10:11)
[2018-10-19] MEDS: ENOXAPARIN 60MG/0.6ML SYR SUBCUT SCH ×2 (10:11→21:23)
[2018-10-19] MEDS: ZINC SULFATE 220 MG ( 50 ) CAPSULE PO SCH (10:12)
[2018-10-19] MEDS: FOLIC ACID/VITAMIN B COMP W-C TABLET NG SCH (10:12)
[2018-10-19] MEDS: FOLIC ACID 1MG TABLET PO SCH (10:12)
[2018-10-19] MEDS: ASCORBIC ACID 500 MG TABLET NG SCH (10:12)
[2018-10-19] MEDS: THIAMINE HCL 100MG TABLET PO SCH (10:12)
[2018-10-19 12:00] VITALS: BP 114/51
[2018-10-19 16:00] VITALS: BP_SYST 100; BP_SYST 106; BP_DIAS 40; BP_DIAS 60
[2018-10-19 20:00] VITALS: BP 133/58
[2018-10-20] VITALS: BP 127/59
[2018-10-20] MEDS: IPRATROPIUM/ALBUTEROL 0.5-3(2.5)MG/3ML NEB HHN SCH ×4 (03:16→22:04)
[2018-10-20] MEDS: LANSOPRAZOLE 30MG DR CAPSULE GT SCH (05:34)
[2018-10-20] MEDS: MIDODRINE HCL 5MG TABLET PO SCH ×3 (05:35→21:23)
[2018-10-20] MEDS: BACLOFEN 10MG TABLET NG SCH ×3 (05:35→21:23)
[2018-10-20 07:01] LABS: HEMATOCRIT. 29.6 % (42.0-52.0); HEMOGLOBIN. 9.9 g/dL (14.0-18.0); MEAN CORPUSCULAR HEMOGLOBIN 30.4 pg (28.0-32.0); MEAN CORPUSCULAR VOLUME 91.1 fL (80.0-94.0); RED BLOOD CELL COUNT 3.25 mill/uL (4.7-6.1); RED CELL DISTRIBUTION WIDTH 15.1 % (11.6-14.6)
[2018-10-20 08:00] VITALS: BP 109/57
[2018-10-20 08:23] LABS: PLATELET 107 x1000/uL (130-400)
[2018-10-20] MEDS: CARVEDILOL 3.125 MG TABLET PO SCH ×2 (09:00→21:00)
[2018-10-20] MEDS: LOSARTAN POTASSIUM 25 MG TABLET PO SCH (09:00)
[2018-10-20] MEDS: THIAMINE HCL 100MG TABLET PO SCH (10:31)
[2018-10-20] MEDS: SULFAMETHOXAZOLE/TRIMETHOPRIM 800/160MG TABLET GT SCH (10:31)
[2018-10-20] MEDS: ZINC SULFATE 220 MG ( 50 ) CAPSULE PO SCH (10:31)
[2018-10-20] MEDS: FOLIC ACID/VITAMIN B COMP W-C TABLET NG SCH (10:31)
[2018-10-20] MEDS: ASCORBIC ACID 500 MG TABLET NG SCH (10:31)
[2018-10-20] MEDS: FOLIC ACID 1MG TABLET PO SCH (10:31)
[2018-10-20] MEDS: ENOXAPARIN 60MG/0.6ML SYR SUBCUT SCH ×2 (10:38→21:24)
[2018-10-20 12:00] VITALS: BP 92/52
[2018-10-20 13:31] LABS: CHLORIDE 106 mEq/L (98-107)
[2018-10-20 16:00] VITALS: BP 89/46
[2018-10-20] MEDS ORDERED: ENOXAPARIN 60MG/0.6ML SYR SUBCUT SCH (16:37)
[2018-10-20 20:00] VITALS: BP 92/50
[2018-10-20] MEDS: METRONIDAZOLE 500MG TABLET GT SCH (21:24)
[2018-10-21] VITALS: BP 155/62
[2018-10-21] MEDS: IPRATROPIUM/ALBUTEROL 0.5-3(2.5)MG/3ML NEB HHN SCH ×4 (03:13→21:30)
[2018-10-21 04:00] VITALS: BP 80/40
[2018-10-21] MEDS: MIDODRINE HCL 5MG TABLET PO SCH ×3 (06:21→22:13)
[2018-10-21] MEDS: LANSOPRAZOLE 30MG DR CAPSULE GT SCH (06:21)
[2018-10-21] MEDS: METRONIDAZOLE 500MG TABLET GT SCH ×3 (06:22→22:13)
[2018-10-21] MEDS: BACLOFEN 10MG TABLET NG SCH ×3 (06:22→22:13)
[2018-10-21 08:00] VITALS: BP 116/81
[2018-10-21] MEDS: SULFAMETHOXAZOLE/TRIMETHOPRIM 800/160MG TABLET GT SCH (09:25)
[2018-10-21] MEDS: CARVEDILOL 3.125 MG TABLET PO SCH ×2 (09:26→21:00)
[2018-10-21] MEDS: FOLIC ACID 1MG TABLET PO SCH (09:26)
[2018-10-21] MEDS: ENOXAPARIN 60MG/0.6ML SYR SUBCUT SCH ×2 (09:26→22:14)
[2018-10-21] MEDS: THIAMINE HCL 100MG TABLET PO SCH (09:26)
[2018-10-21] MEDS: LOSARTAN POTASSIUM 25 MG TABLET PO SCH (09:26)
[2018-10-21] MEDS: ZINC SULFATE 220 MG ( 50 ) CAPSULE PO SCH (09:26)
[2018-10-21] MEDS: ASCORBIC ACID 500 MG TABLET NG SCH (09:27)
[2018-10-21] MEDS: FOLIC ACID/VITAMIN B COMP W-C TABLET NG SCH (09:27)
[2018-10-21 12:00] VITALS: BP 97/51
[2018-10-21 16:00] VITALS: BP 105/67
[2018-10-21 20:00] VITALS: BP 81/49
[2018-10-22] VITALS: BP 90/48
[2018-10-22 04:00] VITALS: BP 91/48
[2018-10-22] MEDS: IPRATROPIUM/ALBUTEROL 0.5-3(2.5)MG/3ML NEB HHN SCH ×4 (04:40→22:33)
[2018-10-22] MEDS: LANSOPRAZOLE 30MG DR CAPSULE GT SCH (05:43)
[2018-10-22] MEDS: METRONIDAZOLE 500MG TABLET GT SCH ×3 (05:43→21:54)
[2018-10-22] MEDS: MIDODRINE HCL 5MG TABLET PO SCH ×3 (05:44→21:54)
[2018-10-22] MEDS: BACLOFEN 10MG TABLET NG SCH ×3 (05:44→21:54)
[2018-10-22] MEDS: SULFAMETHOXAZOLE/TRIMETHOPRIM 800/160MG TABLET PO SCH (08:16)
[2018-10-22] MEDS: LOSARTAN POTASSIUM 25 MG TABLET PO SCH (08:16)
[2018-10-22] MEDS: ENOXAPARIN 60MG/0.6ML SYR SUBCUT SCH ×2 (08:16→21:54)
[2018-10-22] MEDS: FOLIC ACID/VITAMIN B COMP W-C TABLET NG SCH (08:16)
[2018-10-22] MEDS: FOLIC ACID 1MG TABLET PO SCH (08:17)
[2018-10-22] MEDS: ASCORBIC ACID 500 MG TABLET NG SCH (08:17)
[2018-10-22] MEDS: ZINC SULFATE 220 MG ( 50 ) CAPSULE PO SCH (08:17)
[2018-10-22] MEDS: CARVEDILOL 3.125 MG TABLET PO SCH ×2 (08:17→21:00)
[2018-10-22] MEDS: THIAMINE HCL 100MG TABLET PO SCH (08:17)
[2018-10-22 12:00] VITALS: BP 82/47
[2018-10-22 16:00] VITALS: BP 103/56
[2018-10-22 20:00] VITALS: BP_SYST 105; BP_SYST 95; BP_DIAS 44; BP_DIAS 63
[2018-10-23] VITALS: BP 98/60
[2018-10-23 04:00] VITALS: BP 96/57
[2018-10-23] MEDS: IPRATROPIUM/ALBUTEROL 0.5-3(2.5)MG/3ML NEB HHN SCH ×4 (05:02→20:03)
[2018-10-23] MEDS: BACLOFEN 10MG TABLET NG SCH ×3 (05:56→21:33)
[2018-10-23] MEDS: METRONIDAZOLE 500MG TABLET GT SCH ×3 (05:56→21:33)
[2018-10-23] MEDS: LANSOPRAZOLE 30MG DR CAPSULE GT SCH (05:56)
[2018-10-23] MEDS: MIDODRINE HCL 5MG TABLET PO SCH ×3 (05:57→21:32)
[2018-10-23 08:00] VITALS: BP 135/60
[2018-10-23] MEDS: ZINC SULFATE 220 MG ( 50 ) CAPSULE PO SCH (09:36)
[2018-10-23] MEDS: FOLIC ACID/VITAMIN B COMP W-C TABLET NG SCH (09:36)
[2018-10-23] MEDS: SULFAMETHOXAZOLE/TRIMETHOPRIM 800/160MG TABLET PO SCH (09:36)
[2018-10-23] MEDS: ASCORBIC ACID 500 MG TABLET NG SCH (09:36)
[2018-10-23] MEDS: FOLIC ACID 1MG TABLET PO SCH (09:36)
[2018-10-23] MEDS: THIAMINE HCL 100MG TABLET PO SCH (09:36)
[2018-10-23] MEDS: ENOXAPARIN 60MG/0.6ML SYR SUBCUT SCH ×2 (09:37→21:33)
[2018-10-23] MEDS: CARVEDILOL 3.125 MG TABLET PO SCH ×2 (09:37→21:00)
[2018-10-23] MEDS: LOSARTAN POTASSIUM 25 MG TABLET PO SCH (09:37)
[2018-10-23 12:00] VITALS: BP 100/57
[2018-10-23] MEDS: SODIUM CHLORIDE 0.45% 1,000 ML IV SCH (15:15)
[2018-10-23 16:00] VITALS: BP 95/53
[2018-10-23 20:00] VITALS: BP 101/60
[2018-10-24] VITALS: BP 110/55
[2018-10-24] MEDS: IPRATROPIUM/ALBUTEROL 0.5-3(2.5)MG/3ML NEB HHN SCH (01:20)
[2018-10-24 04:00] VITALS: BP 107/62
[2018-10-24] MEDS: SODIUM CHLORIDE 0.45% 1,000 ML IV SCH ×2 (04:35→17:55)
[2018-10-24] MEDS: METRONIDAZOLE 500MG TABLET GT SCH ×3 (05:43→21:33)
[2018-10-24] MEDS: LANSOPRAZOLE 30MG DR CAPSULE GT SCH (05:48)
[2018-10-24 08:00] VITALS: BP 91/54
[2018-10-24] MEDS: LOSARTAN POTASSIUM 25 MG TABLET PO SCH (09:00)
[2018-10-24] MEDS: CARVEDILOL 3.125 MG TABLET PO SCH ×2 (09:00→21:00)
[2018-10-24] MEDS: SULFAMETHOXAZOLE/TRIMETHOPRIM 800/160MG TABLET PO SCH (09:48)
[2018-10-24] MEDS: ZINC SULFATE 220 MG ( 50 ) CAPSULE PO SCH (09:48)
[2018-10-24] MEDS: FOLIC ACID 1MG TABLET PO SCH (09:48)
[2018-10-24] MEDS: FOLIC ACID/VITAMIN B COMP W-C TABLET NG SCH (09:48)
[2018-10-24] MEDS: THIAMINE HCL 100MG TABLET PO SCH (09:48)
[2018-10-24] MEDS: ASCORBIC ACID 500 MG TABLET NG SCH (09:48)
[2018-10-24] MEDS: ENOXAPARIN 60MG/0.6ML SYR SUBCUT SCH ×2 (09:49→21:34)
[2018-10-24 12:00] VITALS: BP 101/56
[2018-10-24 16:00] VITALS: BP 123/49
[2018-10-24 20:00] VITALS: BP 98/54
[2018-10-25] VITALS (7 sets, daily range): BP systolic 82–114; BP diastolic 38–75
[2018-10-25] MEDS: LANSOPRAZOLE 30MG DR CAPSULE GT SCH (06:50)
[2018-10-25] MEDS: METRONIDAZOLE 500MG TABLET GT SCH ×2 (06:50→13:10)
[2018-10-25] MEDS: CARVEDILOL 3.125 MG TABLET PO SCH ×2 (09:00→21:00)
[2018-10-25] MEDS: LOSARTAN POTASSIUM 25 MG TABLET PO SCH (09:00)
[2018-10-25] MEDS: ASCORBIC ACID 500 MG TABLET NG SCH (09:35)
[2018-10-25] MEDS: FOLIC ACID 1MG TABLET PO SCH (09:35)
[2018-10-25] MEDS: FOLIC ACID/VITAMIN B COMP W-C TABLET NG SCH (09:35)
[2018-10-25] MEDS: SULFAMETHOXAZOLE/TRIMETHOPRIM 800/160MG TABLET PO SCH (09:35)
[2018-10-25] MEDS: ZINC SULFATE 220 MG ( 50 ) CAPSULE PO SCH (09:35)
[2018-10-25] MEDS: THIAMINE HCL 100MG TABLET PO SCH (09:35)
[2018-10-25] MEDS: ENOXAPARIN 60MG/0.6ML SYR SUBCUT SCH ×2 (09:36→22:19)
[2018-10-26] VITALS (7 sets, daily range): BP systolic 89–138; BP diastolic 43–63
[2018-10-26] MEDS: LANSOPRAZOLE 30MG DR CAPSULE GT SCH (06:27)
[2018-10-26 06:30] LABS: HEMATOCRIT. 29.8 % (42.0-52.0); HEMOGLOBIN. 10.2 g/dL (14.0-18.0); MEAN CORPUSCULAR HEMOGLOBIN 30.6 pg (28.0-32.0); MEAN CORPUSCULAR VOLUME 89.9 fL (80.0-94.0); MEAN PLATELET VOLUME 8.8 fl (7.4-10.4); PLATELET 113 x1000/uL (130-400); RED BLOOD CELL COUNT 3.32 mill/uL (4.7-6.1); RED CELL DISTRIBUTION WIDTH 14.9 % (11.6-14.6)
[2018-10-26 06:54] LABS: CHLORIDE 107 mEq/L (98-107)
[2018-10-26] MEDS: CARVEDILOL 3.125 MG TABLET PO SCH ×2 (09:05→21:00)
[2018-10-26] MEDS: ENOXAPARIN 60MG/0.6ML SYR SUBCUT SCH ×2 (09:05→22:44)
[2018-10-26] MEDS: LOSARTAN POTASSIUM 25 MG TABLET PO SCH (09:05)
[2018-10-26] MEDS: SULFAMETHOXAZOLE/TRIMETHOPRIM 800/160MG TABLET PO SCH (09:05)
[2018-10-26 13:25] LABS: ATYPICAL LYMPHOCYTES 2
[2018-10-26 13:26] LABS: PLATELET ESTIMATE SLIGHTLY DECREASED
[2018-10-26] MEDS ORDERED: ACETAMINOPHEN 325MG TABLET GT PRN (23:00)
[2018-10-27] VITALS: BP 111/60
[2018-10-27 04:00] VITALS: BP 122/69
[2018-10-27] MEDS: LANSOPRAZOLE 30MG DR CAPSULE GT SCH (05:52)
[2018-10-27 08:00] VITALS: BP 97/51
[2018-10-27 08:08] LABS: HEMOGLOBIN. 9.8 g/dL (14.0-18.0); MEAN CORPUSCULAR HEMOGLOBIN 30.1 pg (28.0-32.0); MEAN CORPUSCULAR VOLUME 89.6 fL (80.0-94.0); MEAN PLATELET VOLUME 8.6 fl (7.4-10.4); PLATELET 119 x1000/uL (130-400); RED BLOOD CELL COUNT 3.24 mill/uL (4.7-6.1); RED CELL DISTRIBUTION WIDTH 15.1 % (11.6-14.6)
[2018-10-27] MEDS: CARVEDILOL 3.125 MG TABLET PO SCH ×2 (08:34→20:18)
[2018-10-27] MEDS: SULFAMETHOXAZOLE/TRIMETHOPRIM 800/160MG TABLET PO SCH (08:34)
[2018-10-27] MEDS: LOSARTAN POTASSIUM 25 MG TABLET PO SCH (08:35)
[2018-10-27] MEDS: ENOXAPARIN 60MG/0.6ML SYR SUBCUT SCH ×2 (08:35→20:18)
[2018-10-27 09:06] LABS: CHLORIDE 108 mEq/L (98-107)
[2018-10-27 12:00] VITALS: BP 92/50
[2018-10-27 12:59] LABS: PLATELET ESTIMATE DECREASED
[2018-10-27 16:00] VITALS: BP 122/57
[2018-10-27 20:00] VITALS: BP 99/57
[2018-10-28] VITALS: BP 106/57
[2018-10-28] MEDS: SODIUM CHLORIDE 0.45% 1,000 ML IV SCH (01:55)
[2018-10-28 04:00] VITALS: BP 99/52
[2018-10-28] MEDS: LANSOPRAZOLE 30MG DR CAPSULE GT SCH (06:03)
[2018-10-28 07:40] LABS: HEMATOCRIT. 31.3 % (42.0-52.0); HEMOGLOBIN. 10.4 g/dL (14.0-18.0); MEAN CORPUSCULAR HEMOGLOBIN 30.1 pg (28.0-32.0); MEAN CORPUSCULAR VOLUME 90.5 fL (80.0-94.0); MEAN PLATELET VOLUME 8.5 fl (7.4-10.4); PLATELET 124 x1000/uL (130-400); RED BLOOD CELL COUNT 3.46 mill/uL (4.7-6.1)
[2018-10-28 07:51] LABS: CHLORIDE 108 mEq/L (98-107)
[2018-10-28 08:00] VITALS: BP 103/54
[2018-10-28] MEDS: LOSARTAN POTASSIUM 25 MG TABLET PO SCH (09:00)
[2018-10-28] MEDS: CARVEDILOL 3.125 MG TABLET PO SCH ×2 (09:00→22:13)
[2018-10-28] MEDS: SULFAMETHOXAZOLE/TRIMETHOPRIM 800/160MG TABLET PO SCH (09:29)
[2018-10-28] MEDS: ENOXAPARIN 60MG/0.6ML SYR SUBCUT SCH ×2 (09:29→22:12)
[2018-10-28 12:00] VITALS: BP 101/54
[2018-10-28 16:00] VITALS: BP 114/62
[2018-10-28 20:00] VITALS: BP 129/76
[2018-10-29] VITALS: BP 93/54
[2018-10-29 04:00] VITALS: BP 107/52
[2018-10-29] MEDS: LANSOPRAZOLE 30MG DR CAPSULE GT SCH (06:20)
[2018-10-29 08:00] VITALS: BP 130/65
[2018-10-29] MEDS: CARVEDILOL 3.125 MG TABLET PO SCH ×2 (09:34→20:57)
[2018-10-29] MEDS: SULFAMETHOXAZOLE/TRIMETHOPRIM 800/160MG TABLET PO SCH (09:34)
[2018-10-29] MEDS: LOSARTAN POTASSIUM 25 MG TABLET PO SCH (09:34)
[2018-10-29] MEDS: ENOXAPARIN 60MG/0.6ML SYR SUBCUT SCH ×2 (09:35→20:57)
[2018-10-29] MEDS ORDERED: SULFAMETHOXAZOLE/TRIMETHOPRIM 800/160MG TABLET PO SCH (11:00)
[2018-10-29 12:00] VITALS: BP 90/50
[2018-10-29 13:34] LABS: PLATELET ESTIMATE SLIGHTLY DECREASED
[2018-10-29 16:00] VITALS: BP 86/38
[2018-10-29 20:00] VITALS: BP 108/55
[2018-10-30] VITALS (7 sets, daily range): BP systolic 94–127; BP diastolic 44–65
[2018-10-30] MEDS: LANSOPRAZOLE 30MG DR CAPSULE GT SCH (06:27)
[2018-10-30] MEDS: ENOXAPARIN 60MG/0.6ML SYR SUBCUT SCH ×2 (08:49→20:42)
[2018-10-30] MEDS: SULFAMETHOXAZOLE/TRIMETHOPRIM 800/160MG TABLET PO SCH (08:50)
[2018-10-30] MEDS: LOSARTAN POTASSIUM 25 MG TABLET PO SCH ×2 (08:51→09:00)
[2018-10-30] MEDS: CARVEDILOL 3.125 MG TABLET PO SCH (09:00)
[2018-10-31] VITALS: BP 120/60
[2018-10-31 04:00] VITALS: BP 120/60
[2018-10-31] MEDS: LANSOPRAZOLE 30MG DR CAPSULE GT SCH (05:53)
[2018-10-31 08:09] VITALS: BP 98/53
[2018-10-31] MEDS: SULFAMETHOXAZOLE/TRIMETHOPRIM 800/160MG TABLET PO SCH (09:03)
[2018-10-31] MEDS: ENOXAPARIN 60MG/0.6ML SYR SUBCUT SCH ×2 (09:04→20:53)
[2018-10-31 12:00] VITALS: BP 109/47
[2018-10-31 16:00] VITALS: BP 123/51
[2018-10-31 20:00] VITALS: BP 110/53
[2018-11-01] VITALS: BP 84/46
[2018-11-01 04:00] VITALS: BP 84/46
[2018-11-01] MEDS: LANSOPRAZOLE 30MG DR CAPSULE GT SCH (06:26)
[2018-11-01 06:49] LABS: HEMATOCRIT. 30.3 % (42.0-52.0); HEMOGLOBIN. 10.2 g/dL (14.0-18.0); MEAN CORPUSCULAR HEMOGLOBIN 30.7 pg (28.0-32.0); MEAN CORPUSCULAR VOLUME 91.5 fL (80.0-94.0); MEAN PLATELET VOLUME 8.3 fl (7.4-10.4); PLATELET 105 x1000/uL (130-400); RED BLOOD CELL COUNT 3.31 mill/uL (4.7-6.1); RED CELL DISTRIBUTION WIDTH 14.7 % (11.6-14.6)
[2018-11-01 07:15] LABS: CHLORIDE 108 mEq/L (98-107)
[2018-11-01 08:00] VITALS: BP 94/50
[2018-11-01] MEDS: SULFAMETHOXAZOLE/TRIMETHOPRIM 800/160MG TABLET PO SCH (09:12)
[2018-11-01] MEDS: ENOXAPARIN 60MG/0.6ML SYR SUBCUT SCH ×2 (09:13→20:50)
[2018-11-01 12:00] VITALS: BP 95/49
[2018-11-01 13:57] LABS: PLATELET ESTIMATE DECREASED
[2018-11-01 16:00] VITALS: BP 104/65
[2018-11-01 20:00] VITALS: BP 114/62
[2018-11-02] VITALS: BP 104/53
[2018-11-02 04:00] VITALS: BP 90/39
[2018-11-02] MEDS: LANSOPRAZOLE 30MG DR CAPSULE GT SCH (06:20)
[2018-11-02 07:16] LABS: CHLORIDE 107 mEq/L (98-107)
[2018-11-02 07:17] LABS: BASOPHILS % 0.3 % (0.0-2.0); EOSINOPHILS % 1.8 % (0.0-5.0); HEMATOCRIT. 31.4 % (42.0-52.0); HEMOGLOBIN. 10.8 g/dL (14.0-18.0); LYMPHOCYTES % 16.8 % (20.0-50.0); MEAN CORPUSCULAR HEMOGLOBIN 30.9 pg (28.0-32.0); MEAN PLATELET VOLUME 8.4 fl (7.4-10.4); MONOCYTES % 12.9 % (2.0-8.0); NEUTROPHILS % 68.2 % (40.0-76.0); PLATELET 111 x1000/uL (130-400); RED BLOOD CELL COUNT 3.49 mill/uL (4.7-6.1); RED CELL DISTRIBUTION WIDTH 14.6 % (11.6-14.6)
[2018-11-02 08:00] VITALS: BP 104/55
[2018-11-02] MEDS: SULFAMETHOXAZOLE/TRIMETHOPRIM 800/160MG TABLET PO SCH (09:24)
[2018-11-02] MEDS: ENOXAPARIN 60MG/0.6ML SYR SUBCUT SCH (09:25)
[2018-11-02 12:00] VITALS: BP 118/61
[2018-11-02 16:00] VITALS: BP 148/50
[2018-11-02 17:12] VITALS: BP 148/50
== END 2018-11-02 18:10 | disposition home or self-care (01) | DRG 890 ==
LOC: ER 10:42 → CVICU 13:32 → EDBEDREQ 13:34 → EDBEDREQSVC 14:49 → ENRESERV 15:47 → CANRESERV 19:40 → 7WST 09-29 17:00 → 5EST 09-30 22:31 → 5WST 10-04 11:39
PROVIDERS: ADMIT Internal Medicine; ATTEND Internal Medicine
PROC: 0DH63UZ Insertion of Feeding Device into Stomach, Percutaneous Approach (ICD-10-PCS; 2018-09-28)
PROC: 02HV33Z Insertion of Infusion Device into Superior Vena Cava, Percutaneous Approach (ICD-10-PCS; principal; 2018-10-05)
PROC: B5181ZA Fluoroscopy of Superior Vena Cava using Low Osmolar Contrast, Guidance (ICD-10-PCS; 2018-10-05)
PROC: B548ZZA Ultrasonography of Superior Vena Cava, Guidance (ICD-10-PCS; 2018-10-05)
DX: B20 Human immunodeficiency virus [HIV] disease (principal); J96.00 Acute respiratory failure, unspecified whether with hypoxia or hypercapnia; A41.50 Gram-negative sepsis, unspecified; E43 Unspecified severe protein-calorie malnutrition; J15.0 Pneumonia due to Klebsiella pneumoniae; N17.0 Acute kidney failure with tubular necrosis; R65.21 Severe sepsis with septic shock; D69.6 Thrombocytopenia, unspecified; E87.2 Acidosis; Z66 Do not resuscitate; L89.159 Pressure ulcer of sacral region, unspecified stage; N39.0 Urinary tract infection, site not specified; E87.6 Hypokalemia; G82.20 Paraplegia, unspecified; I50.42 Chronic combined systolic (congestive) and diastolic (congestive) heart failure; B96.4 Proteus (mirabilis) (morganii) as the cause of diseases classified elsewhere; D63.8 Anemia in other chronic diseases classified elsewhere; I42.0 Dilated cardiomyopathy; I82.411 Acute embolism and thrombosis of right femoral vein; K29.70 Gastritis, unspecified, without bleeding; N31.9 Neuromuscular dysfunction of bladder, unspecified; N18.9 Chronic kidney disease, unspecified; B96.1 Klebsiella pneumoniae [K. pneumoniae] as the cause of diseases classified elsewhere; E53.8 Deficiency of other specified B group vitamins; G92 Toxic encephalopathy; I48.92 Unspecified atrial flutter; R13.10 Dysphagia, unspecified; I13.0 Hypertensive heart and chronic kidney disease with heart failure and stage 1 through stage 4 chronic kidney disease, or unspecified chronic kidney disease; R31.0 Gross hematuria; R62.7 Adult failure to thrive; T83.038A Leakage of other urinary catheter, initial encounter; Y84.6 Urinary catheterization as the cause of abnormal reaction of the patient, or of later complication, without mention of misadventure at the time of the procedure; Z51.5 Encounter for palliative care; Z79.899 Other long term (current) drug therapy; Y92.89 Other specified places as the place of occurrence of the external cause; Z93.1 Gastrostomy status; Z68.1 Body mass index [BMI] 19.9 or less, adult
CPT/HCPCS: 36415; 36556; 36569; 36600; 70551; 71045; 76937; 77001; 80048; 80202; 80305; 82140; 82375; 82607; 82728; 82746; 82805; 82962; 83036; 83540; 83550; 83605; 83735; 83880; 84100; 84134; 84145; 84439; 84443; 84481; 84484; 85362; 85384; 86359; 86360; 87070; 87077; 87186; 87804; 92610; 93005; 93306; 93970; 94640; 96374; 99291; A4565; A6261; C1725; C9113; J0692; J1650; J2060; J2185; J2250; J2270; J2543; J3010; J3370; J3480; J3490; J7030; J7040; J7042; J7050; J7060; J7070; J7620; A4315

== ENCOUNTER 2019-02-24 20:57 | Inpatient (IN) | payer MEDICAID ==
[~2019-02-24] VITALS: Ht 170.2 cm; Wt 56.7 kg
[~2019-02-24 20:57] MED LIST: ASCO500T20 NG; BACL-141 NG; COR3 PO; FOLI-43 PO; LOSA25TA3 PO; MIDO5TAB PO; NEPVIT NG; OR220 PO; SULF1TAB44 GT; THIA100T72 PO
[2019-02-24 22:38] LABS: CHLORIDE 105 mEq/L (98-107)
[2019-02-24 22:47] LABS: BASOPHILS % 0.4 % (0.0-2.0); EOSINOPHILS % 2.6 % (0.0-5.0); HEMATOCRIT. 43.4 % (42.0-52.0); HEMOGLOBIN. 14.5 g/dL (14.0-18.0); LYMPHOCYTES % 19.2 % (20.0-50.0); MEAN CORPUSCULAR HEMOGLOBIN 29.9 pg (28.0-32.0); MEAN CORPUSCULAR VOLUME 89.5 fL (80.0-94.0); MEAN PLATELET VOLUME 8.6 fl (7.4-10.4); MONOCYTES % 9.7 % (2.0-8.0); NEUTROPHILS % 68.1 % (40.0-76.0); PLATELET 121 x1000/uL (130-400); RED BLOOD CELL COUNT 4.85 mill/uL (4.7-6.1); RED CELL DISTRIBUTION WIDTH 14.3 % (11.6-14.6)
[2019-02-25] MEDS ORDERED: SODIUM CHLORIDE 0.9% 500 ML IV ONE (15:48)
[2019-02-25] MEDS ORDERED: DEXT 5%/0.45% NACL 1000ML 1,000 ML IV ONE (15:48)
[2019-02-25 18:03] LABS: BASOPHILS % 0.4 % (0.0-2.0); EOSINOPHILS % 2.1 % (0.0-5.0); HEMATOCRIT. 42.9 % (42.0-52.0); HEMOGLOBIN. 14.1 g/dL (14.0-18.0); LYMPHOCYTES % 17.8 % (20.0-50.0); MEAN CORPUSCULAR HEMOGLOBIN 29.5 pg (28.0-32.0); MEAN CORPUSCULAR VOLUME 90.2 fL (80.0-94.0); MEAN PLATELET VOLUME 8.6 fl (7.4-10.4); MONOCYTES % 12.4 % (2.0-8.0); NEUTROPHILS % 67.3 % (40.0-76.0); PLATELET 118 x1000/uL (130-400); RED BLOOD CELL COUNT 4.76 mill/uL (4.7-6.1); RED CELL DISTRIBUTION WIDTH 14.6 % (11.6-14.6)
[2019-02-25 18:17] LABS: CHLORIDE 106 mEq/L (98-107)
[2019-02-25 20:57] VITALS: BP 143/63
[2019-02-25 21:20] VITALS: BP 143/68
[2019-02-25] MEDS ORDERED: HYDROCODONE/ACETAMINOPHEN 5/325MG TABLET PO PRN (22:45)
[2019-02-25] MEDS ORDERED: CLONIDINE 0.1MG TABLET PO PRN (22:45)
[2019-02-25] MEDS ORDERED: ONDANSETRON HCL 4MG/2ML INJ IV PRN (22:45)
[2019-02-25] MEDS ORDERED: MAGNESIUM/ALUMINUM HYDROXIDE/SIMETHICONE 30ML UDC PO PRN (22:45)
[2019-02-25] MEDS ORDERED: IPRATROPIUM/ALBUTEROL 0.5-3(2.5)MG/3ML NEB INH PRN (22:45)
[2019-02-25] MEDS ORDERED: GUAIFENESIN 200MG/10ML SUGAR FREE UDC PO PRN (22:45)
[2019-02-25] MEDS ORDERED: ACETAMINOPHEN 325MG TABLET PO PRN (22:45)
[2019-02-25] MEDS ORDERED: DOCUSATE SODIUM 100MG CAPSULE PO PRN (22:45)
[2019-02-25] MEDS ORDERED: GABA-533 PO (23:07)
[2019-02-25] MEDS ORDERED: BICT1TAB PO (23:07)
[2019-02-25] MEDS ORDERED: LEVE500T19 PO (23:08)
[2019-02-25] MEDS ORDERED: PANT20TA3 PO (23:09)
[2019-02-26] VITALS: BP 162/63
[2019-02-26 00:20] LABS: CHLORIDE 109 mEq/L (98-107)
[2019-02-26] MEDS: GABAPENTIN 400MG CAPSULE PO SCH ×4 (02:05→18:20)
[2019-02-26 04:00] VITALS: BP 138/73
[2019-02-26] MEDS ORDERED: MIDODRINE HCL 5MG TABLET PO SCH (06:00)
[2019-02-26] MEDS: BACLOFEN 10MG TABLET NG SCH ×3 (06:17→21:47)
[2019-02-26 06:48] LABS: CLARITY URINE CLEAR (CLEAR); COLOR URINE YELLOW (YELLOW); KETONES URINE NEGATIVE (NEGATIVE); LEUKOCYTE ESTERASE URINE 2+ (NEGATIVE); NITRITE URINE NEGATIVE (NEGATIVE); OCCULT BLOOD URINE 2+ (NEGATIVE); PH URINE 6.5 (4.5-8.0); PROTEIN URINE 2+ (NEGATIVE); SPECIFIC GRAVITY URINE 1.014 (1.005-1.030)
[2019-02-26 07:15] LABS: *AMPHETAMINES SCREEN URINE NEGATIVE (NEGATIVE); *BARBITURATES SCREEN URINE NEGATIVE (NEGATIVE); *BENZODIAZEPINES SCREEN URINE NEGATIVE (NEGATIVE); *COCAINE SCREEN URINE NEGATIVE (NEGATIVE); METHADONE URINE SCREEN NEGATIVE (NEGATIVE); OPIATES URINE SCREEN NEGATIVE (NEGATIVE)
[2019-02-26 07:16] LABS: CANNABINOID URINE SCREEN NEGATIVE (NEGATIVE); PHENCYCLIDINE URINE SCREEN NEGATIVE (NEGATIVE)
[2019-02-26 07:28] LABS: BASOPHILS % 0.4 % (0.0-2.0); EOSINOPHILS % 3.2 % (0.0-5.0); HEMOGLOBIN. 13.7 g/dL (14.0-18.0); LYMPHOCYTES % 21.1 % (20.0-50.0); MEAN CORPUSCULAR VOLUME 89.8 fL (80.0-94.0); MONOCYTES % 11.7 % (2.0-8.0); NEUTROPHILS % 63.6 % (40.0-76.0); PLATELET 117 x1000/uL (130-400); RED BLOOD CELL COUNT 4.56 mill/uL (4.7-6.1); RED CELL DISTRIBUTION WIDTH 14.6 % (11.6-14.6)
[2019-02-26 08:00] VITALS: BP 128/68
[2019-02-26 08:03] LABS: LDL CHOLESTEROL 89 mg/dL (5-100)
[2019-02-26 08:04] LABS: CREATINE KINASE 204 IU/L (39-308)
[2019-02-26 08:05] LABS: HDL CHOLESTEROL 39 mg/dL (40-59)
[2019-02-26 08:06] LABS: CREATINE KINASE MB FRACTION 1.7 ng/mL (0.5-3.6)
[2019-02-26] MEDS: ENOXAPARIN 40MG/0.4ML SYR SUBCUT SCH (08:58)
[2019-02-26 12:00] VITALS: BP 93/49
[2019-02-26] MEDS ORDERED: NON FORMULARY PATIENT HOME MED XX SCH (12:15)
[2019-02-26] MEDS: LANSOPRAZOLE 15MG DR CAPSULE NG SCH (13:30)
[2019-02-26 15:59] LABS: CREATINE KINASE 176 IU/L (39-308)
[2019-02-26 16:00] VITALS: BP 123/55
[2019-02-26 16:00] LABS: CREATINE KINASE MB FRACTION 1.6 ng/mL (0.5-3.6)
[2019-02-26] MEDS: LEVETIRACETAM 500MG TABLET PO SCH ×2 (18:18→21:47)
[2019-02-26] MEDS: ASCORBIC ACID 500 MG TABLET NG SCH (18:19)
[2019-02-26 20:00] VITALS: BP 112/57
[2019-02-27] VITALS (7 sets, daily range): BP systolic 115–152; BP diastolic 56–75
[2019-02-27] MEDS: BACLOFEN 10MG TABLET NG SCH ×3 (05:40→21:06)
[2019-02-27] MEDS ORDERED: PANTOPRAZOLE 40MG DR TABLET PO SCH (07:40)
[2019-02-27] MEDS: LEVETIRACETAM 500MG TABLET PO SCH ×2 (09:19→21:06)
[2019-02-27] MEDS: GABAPENTIN 400MG CAPSULE PO SCH ×3 (09:20→16:20)
[2019-02-27] MEDS: ENOXAPARIN 40MG/0.4ML SYR SUBCUT SCH (09:20)
[2019-02-27] MEDS: ASCORBIC ACID 500 MG TABLET NG SCH (09:20)
[2019-02-27] MEDS: LANSOPRAZOLE 15MG DR CAPSULE NG SCH (09:27)
[2019-02-28] VITALS: BP 134/70
[2019-02-28 04:00] VITALS: BP 144/74
[2019-02-28] MEDS: BACLOFEN 10MG TABLET NG SCH ×3 (06:05→21:10)
[2019-02-28 06:51] LABS: BASOPHILS % 0.3 % (0.0-2.0); EOSINOPHILS % 3.6 % (0.0-5.0); HEMOGLOBIN. 13.4 g/dL (14.0-18.0); MEAN CORPUSCULAR HEMOGLOBIN 30.1 pg (28.0-32.0); MEAN CORPUSCULAR VOLUME 89.8 fL (80.0-94.0); MONOCYTES % 11.2 % (2.0-8.0); NEUTROPHILS % 62.9 % (40.0-76.0); PLATELET 119 x1000/uL (130-400); RED BLOOD CELL COUNT 4.45 mill/uL (4.7-6.1); RED CELL DISTRIBUTION WIDTH 14.3 % (11.6-14.6)
[2019-02-28 07:47] LABS: CHLORIDE 110 mEq/L (98-107)
[2019-02-28 08:00] VITALS: BP 122/69
[2019-02-28] MEDS: GABAPENTIN 400MG CAPSULE PO SCH ×3 (09:17→16:34)
[2019-02-28] MEDS: ENOXAPARIN 40MG/0.4ML SYR SUBCUT SCH (09:17)
[2019-02-28] MEDS: ASCORBIC ACID 500 MG TABLET NG SCH (09:17)
[2019-02-28] MEDS: LEVETIRACETAM 500MG TABLET PO SCH ×2 (09:17→21:10)
[2019-02-28] MEDS: LANSOPRAZOLE 15MG DR CAPSULE NG SCH (09:17)
[2019-02-28 11:32] VITALS: BP 166/68
[2019-02-28 15:31] VITALS: BP 154/91
[2019-03-01 05:44] LABS: BASOPHILS % 0.3 % (0.0-2.0); HEMATOCRIT. 40.9 % (42.0-52.0); HEMOGLOBIN. 13.5 g/dL (14.0-18.0); LYMPHOCYTES % 19.7 % (20.0-50.0); MEAN CORPUSCULAR HEMOGLOBIN 29.8 pg (28.0-32.0); MEAN PLATELET VOLUME 9.1 fl (7.4-10.4); MONOCYTES % 12.4 % (2.0-8.0); NEUTROPHILS % 64.6 % (40.0-76.0); PLATELET 128 x1000/uL (130-400); RED BLOOD CELL COUNT 4.54 mill/uL (4.7-6.1); RED CELL DISTRIBUTION WIDTH 14.4 % (11.6-14.6)
[2019-03-01 05:53] LABS: CHLORIDE 110 mEq/L (98-107)
[2019-03-01] MEDS: LANSOPRAZOLE 15MG DR CAPSULE NG SCH (06:42)
[2019-03-01] MEDS: BACLOFEN 10MG TABLET NG SCH ×3 (06:44→21:46)
[2019-03-01 08:00] VITALS: BP 133/70
[2019-03-01] MEDS: GABAPENTIN 400MG CAPSULE PO SCH ×3 (08:12→16:02)
[2019-03-01] MEDS: ASCORBIC ACID 500 MG TABLET NG SCH (08:13)
[2019-03-01] MEDS: LEVETIRACETAM 500MG TABLET PO SCH ×2 (08:13→21:46)
[2019-03-01] MEDS: ENOXAPARIN 40MG/0.4ML SYR SUBCUT SCH (08:13)
[2019-03-01 12:00] VITALS: BP 94/58
[2019-03-01 13:43] LABS: FOLIC ACID (FOLATE) SERUM >20 ng/mL ng/mL (>5.38)
[2019-03-01 13:54] LABS: VITAMIN B12 SERUM 619 pg/mL (211-911)
[2019-03-01 16:31] VITALS: BP 128/63
[2019-03-01 20:00] VITALS: BP_SYST 105; BP_SYST 152; BP_DIAS 54; BP_DIAS 71
[2019-03-02] VITALS (7 sets, daily range): BP systolic 98–154; BP diastolic 53–86
[2019-03-02] MEDS: BACLOFEN 10MG TABLET NG SCH ×2 (06:41→14:08)
[2019-03-02] MEDS: LANSOPRAZOLE 15MG DR CAPSULE NG SCH (06:41)
[2019-03-02] MEDS: ENOXAPARIN 40MG/0.4ML SYR SUBCUT SCH (09:00)
[2019-03-02] MEDS: ASCORBIC ACID 500 MG TABLET NG SCH (10:11)
[2019-03-02] MEDS: GABAPENTIN 400MG CAPSULE PO SCH ×2 (10:11→14:08)
[2019-03-02] MEDS: LEVETIRACETAM 500MG TABLET PO SCH (10:11)
== END 2019-03-02 17:45 | disposition home or self-care (01) | DRG 892 ==
LOC: ER 23:09 → ENRESERV 02-25 18:09 → 7WST 02-25 21:23 → 6EST 02-27 13:32
PROVIDERS: ADMIT Internal Medicine; ATTEND Internal Medicine
DX: L89.150 Pressure ulcer of sacral region, unstageable (principal); B20 Human immunodeficiency virus [HIV] disease; G92 Toxic encephalopathy; I11.0 Hypertensive heart disease with heart failure; G82.20 Paraplegia, unspecified; D69.6 Thrombocytopenia, unspecified; R64 Cachexia; I50.42 Chronic combined systolic (congestive) and diastolic (congestive) heart failure; I42.9 Cardiomyopathy, unspecified; I48.92 Unspecified atrial flutter; K29.70 Gastritis, unspecified, without bleeding; D64.9 Anemia, unspecified; Z93.1 Gastrostomy status; Z86.718 Personal history of other venous thrombosis and embolism; Z68.1 Body mass index [BMI] 19.9 or less, adult; R82.71 Bacteriuria
CPT/HCPCS: 36415; 71045; 80048; 80061; 80305; 82140; 82270; 82550; 82553; 82607; 82746; 83036; 83735; 83880; 84134; 84439; 84443; 84481; 84484; 87077; 87186; 93005; 93970; 96360; 96372; 99285; A6261; J1650; J7040; A4315

== ENCOUNTER 2019-06-09 19:42 | Inpatient (IN) | payer MEDICAID ==
[~2019-06-09] VITALS: Ht 172.7 cm; Wt 54.4 kg
[~2019-06-09 19:42] MED LIST changes: +BICT1TAB PO; -COR3 PO; -FOLI-43 PO; +GABA-533 PO; +LEVE500T19 PO; -LOSA25TA3 PO; -NEPVIT NG; -OR220 PO; +PANT20TA3 PO; -SULF1TAB44 GT; -THIA100T72 PO
[2019-06-09] MEDS ORDERED: SODIUM CHLORIDE 0.9% 1000ML BAG (SEPSIS BOLUS) IV ONE (20:45)
[2019-06-09 22:10] LABS: CLARITY URINE TURBID (CLEAR); COLOR URINE YELLOW (YELLOW); KETONES URINE NEGATIVE (NEGATIVE); LEUKOCYTE ESTERASE URINE 3+ (NEGATIVE); NITRITE URINE POSITIVE (NEGATIVE); OCCULT BLOOD URINE 2+ (NEGATIVE); PH URINE >=9.0 (4.5-8.0); PROTEIN URINE 1+ (NEGATIVE); SPECIFIC GRAVITY URINE 1.003 (1.005-1.030); UROBILINOGEN URINE 0.2 E.U./dL (0.2-1.0)
[2019-06-09 23:17] LABS: BASOPHILS % 0.2 % (0.0-2.0); CHLORIDE 106 mEq/L (98-107); EOSINOPHILS % 0.1 % (0.0-5.0); HEMOGLOBIN. 9.8 g/dL (14.0-18.0); LYMPHOCYTES % 10.6 % (20.0-50.0); MEAN CORPUSCULAR HEMOGLOBIN 27.1 pg (28.0-32.0); MEAN CORPUSCULAR VOLUME 83.1 fL (80.0-94.0); MEAN PLATELET VOLUME 8.2 fl (7.4-10.4); MONOCYTES % 9.8 % (2.0-8.0); NEUTROPHILS % 79.3 % (40.0-76.0); PLATELET 201 x1000/uL (130-400); RED BLOOD CELL COUNT 3.61 mill/uL (4.7-6.1); RED CELL DISTRIBUTION WIDTH 14.9 % (11.6-14.6)
[2019-06-09 23:18] LABS: INR 1.1; PARTIAL THROMBOPLASTIN TIME 33.6 sec (23.4-31.0); PROTHROMBIN TIME 11.4 sec (9.6-11.0)
[2019-06-09 23:32] LABS: CARBAMAZEPINE < 0.5 ug/mL (4-12); PHENOBARBITAL < 2.1 ug/mL (15.0-40.0); VALPROIC ACID < 3.0 ug/mL (50-100)
[2019-06-10] MEDS ORDERED: CEFTRIAXONE 1 G PREMIX 50 ML IV ONE (00:15)
[2019-06-10 06:40] VITALS: BP 114/54
[2019-06-10 07:50] VITALS: BP 114/54
[2019-06-10] MEDS ORDERED: DIPHENHYDRAMINE 50MG/ML VIAL IV PRN (09:30)
[2019-06-10] MEDS ORDERED: ONDANSETRON HCL 4MG/2ML INJ IV PRN (09:30)
[2019-06-10] MEDS ORDERED: ACETAMINOPHEN 325MG TABLET PO PRN (09:30)
[2019-06-10] MEDS ORDERED: DOCUSATE SODIUM 100MG CAPSULE PO PRN (09:30)
[2019-06-10] MEDS ORDERED: IPRATROPIUM/ALBUTEROL 0.5-3(2.5)MG/3ML NEB HHN PRN (09:30)
[2019-06-10] MEDS ORDERED: GUAIFENESIN 200MG/10ML SUGAR FREE UDC PO PRN (09:30)
[2019-06-10] MEDS: SODIUM CHLORIDE 0.9% 1,000 ML IV SCH (10:43)
[2019-06-10 12:00] VITALS: BP 137/67
[2019-06-10 13:53] LABS: PHOSPHORUS 3.2 mg/dL (2.5-4.9)
[2019-06-10 16:00] VITALS: BP 91/48
[2019-06-10 20:28] VITALS: BP 113/71
[2019-06-10] MEDS: LEVETIRACETAM 500MG TABLET PO SCH (21:29)
[2019-06-10] MEDS: CEFTRIAXONE 1 G PREMIX 50 ML IV SCH (21:29)
[2019-06-11] VITALS: BP 116/68
[2019-06-11 04:00] VITALS: BP 138/64
[2019-06-11] MEDS: SODIUM CHLORIDE 0.9% 1,000 ML IV SCH (05:15)
[2019-06-11 07:11] LABS: CHLORIDE 109 mEq/L (98-107)
[2019-06-11 07:14] LABS: BASOPHILS % 0.2 % (0.0-2.0); EOSINOPHILS % 0.5 % (0.0-5.0); HEMATOCRIT. 33.6 % (42.0-52.0); LYMPHOCYTES % 13.1 % (20.0-50.0); MEAN CORPUSCULAR VOLUME 82.6 fL (80.0-94.0); MEAN PLATELET VOLUME 7.9 fl (7.4-10.4); NEUTROPHILS % 76.2 % (40.0-76.0); PLATELET 221 x1000/uL (130-400); RED BLOOD CELL COUNT 4.07 mill/uL (4.7-6.1); RED CELL DISTRIBUTION WIDTH 14.4 % (11.6-14.6)
[2019-06-11 07:17] LABS: LDL CHOLESTEROL 70 mg/dL (5-100)
[2019-06-11 07:18] LABS: HDL CHOLESTEROL 23 mg/dL (40-59)
[2019-06-11 08:00] VITALS: BP 135/67
[2019-06-11] MEDS: LEVETIRACETAM 500MG TABLET PO SCH ×2 (10:17→21:40)
[2019-06-11] MEDS ORDERED: POTASSIUM CHLORIDE INJ 40 MEQ in DEXT 5% WATER 250 ML IV NR (10:30)
[2019-06-11 12:00] VITALS: BP 159/75
[2019-06-11 16:00] VITALS: BP 146/71
[2019-06-11 20:45] VITALS: BP 138/75
[2019-06-11] MEDS: CEFTRIAXONE 1 G PREMIX 50 ML IV SCH (21:40)
[2019-06-12] VITALS (7 sets, daily range): BP systolic 119–173; BP diastolic 58–94
[2019-06-12] MEDS: SODIUM CHLORIDE 0.9% 1,000 ML IV SCH ×2 (02:38→21:39)
[2019-06-12 05:57] LABS: BASOPHILS % 0.3 % (0.0-2.0); EOSINOPHILS % 0.8 % (0.0-5.0); HEMATOCRIT. 31.8 % (42.0-52.0); HEMOGLOBIN. 10.4 g/dL (14.0-18.0); LYMPHOCYTES % 18.1 % (20.0-50.0); MEAN CORPUSCULAR HEMOGLOBIN 27.1 pg (28.0-32.0); MEAN CORPUSCULAR VOLUME 82.8 fL (80.0-94.0); MEAN PLATELET VOLUME 7.9 fl (7.4-10.4); MONOCYTES % 9.1 % (2.0-8.0); NEUTROPHILS % 71.7 % (40.0-76.0); PLATELET 237 x1000/uL (130-400); RED BLOOD CELL COUNT 3.84 mill/uL (4.7-6.1); RED CELL DISTRIBUTION WIDTH 14.8 % (11.6-14.6)
[2019-06-12 06:10] LABS: CHLORIDE 109 mEq/L (98-107)
[2019-06-12] MEDS: LEVETIRACETAM 500MG TABLET PO SCH ×2 (09:36→21:38)
[2019-06-12] MEDS: CEFAZOLIN 1000MG PREMIX 50 ML IV SCH ×2 (12:28→21:38)
[2019-06-12] MEDS ORDERED: CLONIDINE 0.1MG TABLET PO PRN (22:00)
[2019-06-12] MEDS ORDERED: POTASSIUM CHLORIDE 20MEQ TABLET SR PO SCH (22:00)
[2019-06-13] VITALS (7 sets, daily range): BP systolic 99–170; BP diastolic 47–85
[2019-06-13] MEDS: CEFAZOLIN 1000MG PREMIX 50 ML IV SCH ×2 (03:03→12:25)
[2019-06-13 06:44] LABS: CHLORIDE 112 mEq/L (98-107)
[2019-06-13] MEDS ORDERED: ZINC SULFATE 220 MG ( 50 ) CAPSULE PO SCH (09:00)
[2019-06-13] MEDS ORDERED: ASCORBIC ACID 500 MG TABLET PO SCH (09:00)
[2019-06-13] MEDS: LEVETIRACETAM 500MG TABLET PO SCH (09:16)
[2019-06-13 10:22] LABS: BASOPHILS % 0.6 % (0.0-2.0); HEMATOCRIT. 31.3 % (42.0-52.0); HEMOGLOBIN. 10.3 g/dL (14.0-18.0); LYMPHOCYTES % 21.2 % (20.0-50.0); MEAN CORPUSCULAR VOLUME 82.2 fL (80.0-94.0); MEAN PLATELET VOLUME 7.6 fl (7.4-10.4); NEUTROPHILS % 68.2 % (40.0-76.0); PLATELET 240 x1000/uL (130-400); RED BLOOD CELL COUNT 3.81 mill/uL (4.7-6.1); RED CELL DISTRIBUTION WIDTH 14.8 % (11.6-14.6)
[2019-06-13] MEDS ORDERED: CEPH250C2 MT (12:28)
== END 2019-06-13 21:40 | disposition home or self-care (01) | DRG 463 ==
LOC: ER 19:42 → ENRESERV 06-10 03:20 → 6WST 06-10 06:41
PROVIDERS: ADMIT Internal Medicine; ATTEND Internal Medicine
DX: N39.0 Urinary tract infection, site not specified (principal); G82.20 Paraplegia, unspecified; D64.9 Anemia, unspecified; G40.909 Epilepsy, unspecified, not intractable, without status epilepticus; E86.0 Dehydration; Z86.73 Personal history of transient ischemic attack (TIA), and cerebral infarction without residual deficits; N31.9 Neuromuscular dysfunction of bladder, unspecified; Z74.01 Bed confinement status
CPT/HCPCS: 36415; 71045; 80048; 80061; 80156; 80165; 80184; 80185; 81003; 83605; 83735; 84100; 84145; 84443; 84484; 87077; 87186; 93005; 93970; 99285; J0690; J0696; J3480; J7030; J7060

== ENCOUNTER 2019-10-04 06:15 | Inpatient (IN) | payer MEDICAID ==
[2019-10-04] VITALS (43 sets, daily range): BP systolic 39–137; BP diastolic 26–87
[~2019-10-04] VITALS: Ht 170.2 cm; Wt 62.2 kg
[~2019-10-04 06:15] MED LIST changes: +CEPH250C2 MT; -MIDO5TAB PO; +MIDO5TAB4 PO
[2019-10-04] MEDS ORDERED: PIPERACILLIN/TAZ 3.375G PREMIX 50 ML IV ONE (06:30)
[2019-10-04] MEDS ORDERED: SODIUM CHLORIDE 0.9% 1000ML BAG (SEPSIS BOLUS) IV ONE (06:30)
[2019-10-04] MEDS ORDERED: AZITHROMYCIN 500 MG in DEXT 5% WATER 250 ML IV ONE (06:30)
[2019-10-04 06:53] LABS: HEMATOCRIT. 38.2 % (42.0-52.0); HEMOGLOBIN. 12.6 g/dL (14.0-18.0); MEAN CORPUSCULAR VOLUME 84.7 fL (80.0-94.0); MEAN PLATELET VOLUME 9.6 fl (7.4-10.4); PLATELET 81 x1000/uL (130-400); RED CELL DISTRIBUTION WIDTH 14.7 % (11.6-14.6)
[2019-10-04 06:56] LABS: CHLORIDE 108 mEq/L (98-107); INR 1.4; PROTHROMBIN TIME 14.9 sec (9.6-11.0)
[2019-10-04 07:35] LABS: PLATELET ESTIMATE DECREASED
[2019-10-04] MEDS ORDERED: NOREPINEPHRINE 4 MG in DEXT 5% WATER 246 ML IV ONE (08:00)
[2019-10-04] MEDS ORDERED: LIDOCAINE HCL 1% 20ML VIAL (Pyxis) INJ ONE (08:41)
[2019-10-04] MEDS ORDERED: SODIUM CHLORIDE 0.9% 1,000 ML IV SCH (09:22)
[2019-10-04] MEDS ORDERED: AZITHROMYCIN 500 MG in DEXT 5% WATER 250 ML IV SCH (09:30)
[2019-10-04] MEDS ORDERED: PIPERACILLIN/TAZ 3.375G PREMIX 50 ML IV SCH (09:30)
[2019-10-04] MEDS ORDERED: ACETAMINOPHEN 325MG TABLET PO PRN (09:30)
[2019-10-04] MEDS ORDERED: NOREPINEPHRINE 4MG/250ML PMX 250 ML IV ONE ×2 (09:30→14:30)
[2019-10-04] MEDS ORDERED: DIPHENHYDRAMINE 50MG/ML VIAL IV PRN (09:30)
[2019-10-04] MEDS ORDERED: CLONIDINE 0.1MG TABLET PO PRN (09:30)
[2019-10-04] MEDS ORDERED: ONDANSETRON HCL 4MG/2ML INJ IV PRN (09:30)
[2019-10-04] MEDS ORDERED: IPRATROPIUM/ALBUTEROL 0.5-3(2.5)MG/3ML NEB HHN PRN (09:30)
[2019-10-04 10:05] LABS: BG BASE EXCESS -11.8 mmol/L (-2.0-2.0); BG CARBOXYHEMOGLOBIN 0.3 % (0.5-1.5); BG DEOXYHEMOGLOBIN 3.2 % (0.0-5.0); BG FRACTION INSPIRED OXYGEN 21; BG HCO3 ACT 11.9 mmol/L (22.0-26.0); BG METHEMOGLOBIN 0.2 % (0.0-1.5); BG OXYGEN SATURATION 96.8 % (92.0-98.5); BG OXYHEMOGLOBIN 96.3 % (94.0-97.0); BG PH 7.351 (7.350-7.450); BG PO2 92.1 mmHg (75.0-100.0); BG SAMPLE SITE RIGHT RADIAL; BG TOTAL HEMOGLOBIN 11.7 g/dL (12.0-18.0); BG VENT MODE ROOM AIR
[2019-10-04 10:25] LABS: CLARITY URINE TURBID (CLEAR); COLOR URINE BLOODY (YELLOW); KETONES URINE NEGATIVE (NEGATIVE); LEUKOCYTE ESTERASE URINE 1+ (NEGATIVE); NITRITE URINE POSITIVE (NEGATIVE); OCCULT BLOOD URINE 3+ (NEGATIVE); PROTEIN URINE 4+ (NEGATIVE); SPECIFIC GRAVITY URINE 1.039 (1.005-1.030); UROBILINOGEN URINE 0.2 E.U./dL (0.2-1.0)
[2019-10-04] MEDS: SODIUM CHLORIDE 0.9% 1,000 ML IV SCH ×2 (10:31→22:33)
[2019-10-04] MEDS ORDERED: KCL 20MEQ/100ML PREMIX 100 ML IV NR (10:37)
[2019-10-04] MEDS ORDERED: VANCOMYCIN 750 MG PREMIX 150 ML IV SCH (15:00)
[2019-10-04] MEDS ORDERED: GABAPENTIN 400MG CAPSULE PO SCH (17:00)
[2019-10-04] MEDS ORDERED: LEVETIRACETAM 500MG TABLET PO SCH (17:00)
[2019-10-04] MEDS: MEROPENEM 1,000 MG in SODIUM CHLORIDE 0.9% 100 ML IV SCH (17:40)
[2019-10-04] MEDS: NOREPINEPHRINE 16 MG in DEXT 5% WATER 484 ML IV PRN (17:47)
[2019-10-04] MEDS: LEVETIRACETAM 500MG/5ML CUP NG SCH (17:50)
[2019-10-04] MEDS ORDERED: VANCOMYCIN 1250MG in DEXTROSE 5% WATER 250ML IV NR (21:00)
[2019-10-04] MEDS: BICTEGRAVIR PO SCH (22:33)
[2019-10-04] MEDS: TENOFOVIR ALAFENAMIDE PO SCH (22:33)
[2019-10-04] MEDS: EMTRICITABINE PO SCH (22:33)
[2019-10-04] MEDS: GABAPENTIN SOLN 50MG/1ML UDC NG SCH (22:34)
[2019-10-04] MEDS: BACLOFEN 10MG TABLET NG SCH (22:34)
[2019-10-05] VITALS (96 sets, daily range): BP systolic 37–114; BP diastolic 27–72
[2019-10-05] MEDS: NOREPINEPHRINE 16 MG in DEXT 5% WATER 484 ML IV PRN (03:20)
[2019-10-05] MEDS: BACLOFEN 10MG TABLET NG SCH (05:26)
[2019-10-05] MEDS: MEROPENEM 1,000 MG in SODIUM CHLORIDE 0.9% 100 ML IV SCH ×2 (05:26→17:30)
[2019-10-05] MEDS: GABAPENTIN SOLN 50MG/1ML UDC NG SCH ×3 (05:26→21:18)
[2019-10-05 05:57] LABS: CHLORIDE 110 mEq/L (98-107)
[2019-10-05 06:00] LABS: HEMATOCRIT. 35.3 % (42.0-52.0); HEMOGLOBIN. 11.6 g/dL (14.0-18.0); MEAN CORPUSCULAR HEMOGLOBIN 27.8 pg (28.0-32.0); MEAN CORPUSCULAR VOLUME 84.5 fL (80.0-94.0); MEAN PLATELET VOLUME 10.5 fl (7.4-10.4); PLATELET 82 x1000/uL (130-400); RED BLOOD CELL COUNT 4.18 mill/uL (4.7-6.1)
[2019-10-05 06:05] LABS: LDL CHOLESTEROL 26 mg/dL (5-100)
[2019-10-05 06:06] LABS: CREATINE KINASE 659 IU/L (39-308)
[2019-10-05 06:08] LABS: HDL CHOLESTEROL 24 mg/dL (40-59)
[2019-10-05 06:22] LABS: HEPATITIS B SURFACE ANTIGEN NEGATIVE
[2019-10-05 06:52] LABS: HEPATITIS A AB IGM NEGATIVE (NEGATIVE)
[2019-10-05] MEDS: SODIUM CHLORIDE 0.9% 1,000 ML IV SCH (06:53)
[2019-10-05] MEDS: EMTRICITABINE PO SCH (08:16)
[2019-10-05] MEDS: BICTEGRAVIR PO SCH (08:16)
[2019-10-05] MEDS: LEVETIRACETAM 500MG/5ML CUP NG SCH ×2 (08:16→17:30)
[2019-10-05] MEDS: TENOFOVIR ALAFENAMIDE PO SCH (08:16)
[2019-10-05] MEDS: NOREPINEPHRINE 32 MG in DEXT 5% WATER 468 ML IV PRN (10:03)
[2019-10-05 10:11] LABS: PLATELET ESTIMATE DECREASED
[2019-10-05] MEDS: SODIUM BICARBONATE 75 MEQ in DEXT 5%/0.45% NACL 1000ML 1,000 ML IV SCH ×2 (10:49→20:56)
[2019-10-05] MEDS ORDERED: MAGNESIUM 2 G PREMIX 50 ML IV SCH (11:00)
[2019-10-05] MEDS: VANCOMYCIN 750 MG PREMIX 150 ML IV SCH (20:31)
[2019-10-06] VITALS (87 sets, daily range): BP systolic 73–144; BP diastolic 44–72
[2019-10-06 05:16] LABS: HEMATOCRIT. 38.3 % (42.0-52.0); HEMOGLOBIN. 12.8 g/dL (14.0-18.0); MEAN PLATELET VOLUME 10.7 fl (7.4-10.4); RED BLOOD CELL COUNT 4.56 mill/uL (4.7-6.1); RED CELL DISTRIBUTION WIDTH 14.9 % (11.6-14.6)
[2019-10-06] MEDS: GABAPENTIN SOLN 50MG/1ML UDC NG SCH ×3 (05:22→21:26)
[2019-10-06 05:28] LABS: PHOSPHORUS 3.3 mg/dL (2.5-4.9)
[2019-10-06 05:32] LABS: PLATELET 47 x1000/uL (130-400)
[2019-10-06] MEDS: MEROPENEM 1,000 MG in SODIUM CHLORIDE 0.9% 100 ML IV SCH ×2 (05:58→17:32)
[2019-10-06 07:13] LABS: PLATELET ESTIMATE MARKEDLY DECREASED
[2019-10-06 08:11] LABS: BG BASE EXCESS -3.7 mmol/L (-2.0-2.0); BG CARBOXYHEMOGLOBIN 0.3 % (0.5-1.5); BG DEOXYHEMOGLOBIN 2.6 % (0.0-5.0); BG FRACTION INSPIRED OXYGEN 24; BG HCO3 ACT 19.4 mmol/L (22.0-26.0); BG METHEMOGLOBIN 0.2 % (0.0-1.5); BG OXYGEN SATURATION 97.4 % (92.0-98.5); BG OXYHEMOGLOBIN 96.9 % (94.0-97.0); BG PCO2 29.2 mmHg (35.0-45.0); BG PO2 100.8 mmHg (75.0-100.0); BG SAMPLE SITE RIGHT RADIAL; BG TOTAL HEMOGLOBIN 11.6 g/dL (12.0-18.0); BG VENT MODE NASAL CANNULA
[2019-10-06] MEDS: EMTRICITABINE PO SCH (08:25)
[2019-10-06] MEDS: LEVETIRACETAM 500MG/5ML CUP NG SCH ×2 (08:25→17:33)
[2019-10-06] MEDS: BICTEGRAVIR PO SCH (08:25)
[2019-10-06] MEDS: TENOFOVIR ALAFENAMIDE PO SCH (08:25)
[2019-10-06] MEDS ORDERED: DEXT 5%/0.9% NACL 1,000 ML IV SCH (08:30)
[2019-10-06 09:06] LABS: % CD 3 POS. LYMPHOCYTES 72.3 % (57.5-86.2); % CD 4 POS. LYMPHOCYTES 33.1 % (30.8-58.5); % CD 8 POS. LYMPH 38.2 % (12.0-35.5); ABSOLUTE CD 3 723 /uL (622-2402); ABSOLUTE CD 4 HELPER 331 /uL (359-1519); ABSOLUTE CD 8 SUPPRESSOR 382 /uL (109-897); ABSOLUTE NEUTROPHILS 29.5 x10E3/uL (1.4-7.0); BASOPHILS 0 % (Not Estab.); CD4/CD8 RATIO 0.87 (0.92-3.72); HEMATOCRIT 37.4 % (37.5-51.0); HEMATOLOGY COMMENT Note: (.); HEMOGLOBIN 11.5 g/dL (13.0-17.7); LYMPHOCYTES 3 % (Not Estab.); MEAN CORPUSCULAR HEMOGLOBIN 26.8 pg (26.6-33.0); MEAN CORPUSCULAR HGB CONC. 30.7 g/dL (31.5-35.7); MEAN CORPUSCULAR VOLUME 87 fL (79-97); MONOCYTES 3 % (Not Estab.); NEUTROPHILS 81 % (Not Estab.); PLATELETS 97 x10E3/uL (150-450); RBC 4.29 x10E6/uL (4.14-5.80); RED CELL DISTRIBUTION WIDTH 14.5 % (11.6-15.4); WBC 32.1 x10E3/uL (3.4-10.8)
[2019-10-06] MEDS ORDERED: KCL 20MEQ/100ML PREMIX 100 ML IV SCH ×2 (10:00→15:00)
[2019-10-06] MEDS: MIDODRINE HCL 5MG TABLET NG SCH ×2 (13:30→17:32)
[2019-10-06] MEDS: DEXT 5%/0.45% NACL 1000ML 1,000 ML IV SCH ×2 (13:30→23:30)
[2019-10-06] MEDS: NOREPINEPHRINE 32 MG in DEXT 5% WATER 468 ML IV PRN (16:13)
[2019-10-06] MEDS: VANCOMYCIN 750 MG PREMIX 150 ML IV SCH (21:25)
[2019-10-07] VITALS (86 sets, daily range): BP systolic 82–150; BP diastolic 42–80
[2019-10-07] MEDS: MEROPENEM 1,000 MG in SODIUM CHLORIDE 0.9% 100 ML IV SCH ×2 (05:18→17:47)
[2019-10-07] MEDS: GABAPENTIN SOLN 50MG/1ML UDC NG SCH ×3 (06:44→22:12)
[2019-10-07] MEDS: EMTRICITABINE PO SCH (08:30)
[2019-10-07] MEDS: TENOFOVIR ALAFENAMIDE PO SCH (08:30)
[2019-10-07] MEDS: DEXT 5%/0.45% NACL 1000ML 1,000 ML IV SCH (08:30)
[2019-10-07] MEDS: BICTEGRAVIR PO SCH (08:30)
[2019-10-07] MEDS: LEVETIRACETAM 500MG/5ML CUP NG SCH ×2 (08:30→17:47)
[2019-10-07] MEDS: MIDODRINE HCL 5MG TABLET NG SCH ×3 (08:30→17:48)
[2019-10-07 09:51] LABS: HEMATOCRIT. 34.5 % (42.0-52.0); MEAN CORPUSCULAR HEMOGLOBIN 27.8 pg (28.0-32.0); MEAN CORPUSCULAR VOLUME 83.3 fL (80.0-94.0); MEAN PLATELET VOLUME 9.9 fl (7.4-10.4); PLATELET 61 x1000/uL (130-400); RED BLOOD CELL COUNT 4.15 mill/uL (4.7-6.1); RED CELL DISTRIBUTION WIDTH 14.8 % (11.6-14.6)
[2019-10-07 09:54] LABS: HEMOGLOBIN. 11.5 g/dL (14.0-18.0)
[2019-10-07 10:57] LABS: PLATELET ESTIMATE DECREASED
[2019-10-07] MEDS ORDERED: POTASSIUM CHLORIDE INJ 40 MEQ in DEXT 5% WATER 250 ML IV NR (12:00)
[2019-10-07] MEDS: NYSTATIN 100,000 UNITS/ML 5ML UDC SSW SCH ×3 (12:22→23:32)
[2019-10-07] MEDS ORDERED: VANCOMYCIN 750 MG PREMIX 150 ML IV SCH (17:00)
[2019-10-07] MEDS ORDERED: POTASSIUM PHOS,M-BASIC-D-BASIC 15 MMOL in DEXT 5% WATER 245 ML IV NR (19:30)
[2019-10-08] VITALS (81 sets, daily range): BP systolic 86–166; BP diastolic 42–105
[2019-10-08 05:02] LABS: HEMATOCRIT. 32.2 % (42.0-52.0); HEMOGLOBIN. 10.8 g/dL (14.0-18.0); MEAN CORPUSCULAR VOLUME 83.2 fL (80.0-94.0); PLATELET 55 x1000/uL (130-400); RED BLOOD CELL COUNT 3.87 mill/uL (4.7-6.1)
[2019-10-08] MEDS: GABAPENTIN SOLN 50MG/1ML UDC NG SCH ×3 (05:22→21:06)
[2019-10-08] MEDS: NYSTATIN 100,000 UNITS/ML 5ML UDC SSW SCH ×3 (05:22→17:10)
[2019-10-08] MEDS: MEROPENEM 1,000 MG in SODIUM CHLORIDE 0.9% 100 ML IV SCH ×2 (05:23→17:09)
[2019-10-08 05:33] LABS: PHOSPHORUS 2.7 mg/dL (2.5-4.9)
[2019-10-08] MEDS: MIDODRINE HCL 5MG TABLET NG SCH ×3 (08:51→17:10)
[2019-10-08] MEDS: LEVETIRACETAM 500MG/5ML CUP NG SCH ×2 (08:51→17:10)
[2019-10-08] MEDS: TENOFOVIR ALAFENAMIDE PO SCH (08:52)
[2019-10-08] MEDS: MAGIC MOUTH WASH XX PRN (08:52)
[2019-10-08] MEDS: BICTEGRAVIR PO SCH (08:52)
[2019-10-08] MEDS: EMTRICITABINE PO SCH (08:52)
[2019-10-08 12:26] LABS: PLATELET ESTIMATE DECREASED
[2019-10-08] MEDS ORDERED: VANCOMYCIN 1 G PREMIX 200 ML IV SCH (18:00)
[2019-10-09] MEDS: NYSTATIN 100,000 UNITS/ML 5ML UDC SSW SCH ×5 (00:36→23:17)
[2019-10-09 04:00] VITALS: BP 98/55
[2019-10-09] MEDS: MEROPENEM 1,000 MG in SODIUM CHLORIDE 0.9% 100 ML IV SCH ×2 (05:33→18:27)
[2019-10-09] MEDS: GABAPENTIN SOLN 50MG/1ML UDC NG SCH ×3 (05:39→21:21)
[2019-10-09 06:24] LABS: BASOPHILS % 0.4 % (0.0-2.0); EOSINOPHILS % 3.4 % (0.0-5.0); HEMATOCRIT. 34.2 % (42.0-52.0); HEMOGLOBIN. 11.5 g/dL (14.0-18.0); LYMPHOCYTES % 15.9 % (20.0-50.0); MEAN CORPUSCULAR HEMOGLOBIN 28.1 pg (28.0-32.0); MEAN CORPUSCULAR VOLUME 83.2 fL (80.0-94.0); MEAN PLATELET VOLUME 9.8 fl (7.4-10.4); MONOCYTES % 14.1 % (2.0-8.0); NEUTROPHILS % 66.2 % (40.0-76.0); PLATELET 55 x1000/uL (130-400); RED BLOOD CELL COUNT 4.11 mill/uL (4.7-6.1); RED CELL DISTRIBUTION WIDTH 14.6 % (11.6-14.6)
[2019-10-09 08:00] VITALS: BP 97/51
[2019-10-09] MEDS: TENOFOVIR ALAFENAMIDE PO SCH ×2 (08:49→08:59)
[2019-10-09] MEDS: EMTRICITABINE PO SCH ×2 (08:49→08:59)
[2019-10-09] MEDS: BICTEGRAVIR PO SCH ×2 (08:49→08:59)
[2019-10-09] MEDS: MIDODRINE HCL 5MG TABLET NG SCH ×3 (08:58→18:24)
[2019-10-09] MEDS: LEVETIRACETAM 500MG/5ML CUP NG SCH ×2 (08:59→18:22)
[2019-10-09 12:00] VITALS: BP 106/59
[2019-10-09 16:00] VITALS: BP 119/62
[2019-10-09 20:00] VITALS: BP 130/65
[2019-10-10] VITALS: BP 133/56
[2019-10-10 04:00] VITALS: BP 99/52
[2019-10-10] MEDS: NYSTATIN 100,000 UNITS/ML 5ML UDC SSW SCH ×3 (05:26→18:09)
[2019-10-10] MEDS: GABAPENTIN SOLN 50MG/1ML UDC NG SCH ×3 (05:27→21:12)
[2019-10-10] MEDS: MEROPENEM 1,000 MG in SODIUM CHLORIDE 0.9% 100 ML IV SCH (05:27)
[2019-10-10 08:00] VITALS: BP 118/64
[2019-10-10 08:05] LABS: HEMATOCRIT. 32.5 % (42.0-52.0); HEMOGLOBIN. 10.9 g/dL (14.0-18.0); MEAN CORPUSCULAR HEMOGLOBIN 27.8 pg (28.0-32.0); MEAN CORPUSCULAR VOLUME 82.7 fL (80.0-94.0); PLATELET 81 x1000/uL (130-400); RED BLOOD CELL COUNT 3.93 mill/uL (4.7-6.1); RED CELL DISTRIBUTION WIDTH 14.7 % (11.6-14.6)
[2019-10-10] MEDS: LEVETIRACETAM 500MG/5ML CUP NG SCH ×2 (10:09→18:08)
[2019-10-10] MEDS: EMTRICITABINE PO SCH (10:09)
[2019-10-10] MEDS: MIDODRINE HCL 5MG TABLET NG SCH ×3 (10:09→18:08)
[2019-10-10] MEDS: BICTEGRAVIR PO SCH (10:09)
[2019-10-10] MEDS: TENOFOVIR ALAFENAMIDE PO SCH (10:09)
[2019-10-10 12:00] VITALS: BP 120/74
[2019-10-10 13:05] LABS: PHOSPHORUS 2.6 mg/dL (2.5-4.9)
[2019-10-10] MEDS: MAGIC MOUTH WASH XX PRN (13:32)
[2019-10-10 16:00] VITALS: BP 108/74
[2019-10-10 16:13] LABS: ATYPICAL LYMPHOCYTES 1
[2019-10-10 16:14] LABS: PLATELET ESTIMATE DECREASED
[2019-10-10] MEDS: CEFEPIME 2,000 MG in DEXT 5% WATER 100 ML IV SCH (18:08)
[2019-10-10 20:00] VITALS: BP 144/69
[2019-10-10] MEDS: VALACYCLOVIR HCL 500MG TABLET PO SCH (21:12)
[2019-10-11] VITALS: BP 135/70
[2019-10-11] MEDS: NYSTATIN 100,000 UNITS/ML 5ML UDC SSW SCH ×3 (00:19→13:08)
[2019-10-11 04:00] VITALS: BP 127/65
[2019-10-11] MEDS: GABAPENTIN SOLN 50MG/1ML UDC NG SCH ×2 (05:17→14:37)
[2019-10-11 07:58] LABS: BASOPHILS % 0.6 % (0.0-2.0); EOSINOPHILS % 2.4 % (0.0-5.0); HEMATOCRIT. 32.4 % (42.0-52.0); HEMOGLOBIN. 10.9 g/dL (14.0-18.0); LYMPHOCYTES % 26.7 % (20.0-50.0); MEAN CORPUSCULAR HEMOGLOBIN 27.9 pg (28.0-32.0); MEAN PLATELET VOLUME 9.5 fl (7.4-10.4); MONOCYTES % 12.8 % (2.0-8.0); NEUTROPHILS % 57.5 % (40.0-76.0); PLATELET 107 x1000/uL (130-400); RED CELL DISTRIBUTION WIDTH 14.6 % (11.6-14.6)
[2019-10-11 08:00] VITALS: BP 109/54
[2019-10-11 08:25] LABS: PHOSPHORUS 2.9 mg/dL (2.5-4.9)
[2019-10-11] MEDS: LEVETIRACETAM 500MG/5ML CUP NG SCH (10:19)
[2019-10-11] MEDS: MIDODRINE HCL 5MG TABLET NG SCH ×3 (10:19→17:00)
[2019-10-11] MEDS: EMTRICITABINE PO SCH (10:20)
[2019-10-11] MEDS: BICTEGRAVIR PO SCH (10:20)
[2019-10-11] MEDS: TENOFOVIR ALAFENAMIDE PO SCH (10:20)
[2019-10-11] MEDS: VALACYCLOVIR HCL 500MG TABLET PO SCH (10:29)
[2019-10-11 12:00] VITALS: BP 167/86
[2019-10-11] MEDS ORDERED: POTASSIUM CHLORIDE INJ 40 MEQ in DEXT 5% WATER 250 ML IV NR (12:00)
[2019-10-11] MEDS: CEFEPIME 2,000 MG in DEXT 5% WATER 100 ML IV SCH (14:37)
[2019-10-11 14:56] VITALS: BP 157/86
[2019-10-11 16:00] VITALS: BP 114/51
== END 2019-10-11 18:35 | disposition home health service (06) | DRG 892 ==
LOC: ER 06:15 → CVICU 09:12 → EDBEDREQSVC 09:16 → EDBEDREQTM 09:16 → EDBEDREQ 09:16 → ENRESERV 13:18 → 7WST 10-08 23:06
PROVIDERS: ADMIT Internal Medicine; ATTEND Internal Medicine
PROC: 05HY33Z Insertion of Infusion Device into Upper Vein, Percutaneous Approach (ICD-10-PCS; principal; 2019-10-04)
PROC: B54MZZA Ultrasonography of Right Upper Extremity Veins, Guidance (ICD-10-PCS; 2019-10-04)
DX: B20 Human immunodeficiency virus [HIV] disease (principal); A41.51 Sepsis due to Escherichia coli [E. coli]; N17.0 Acute kidney failure with tubular necrosis; R65.21 Severe sepsis with septic shock; L89.894 Pressure ulcer of other site, stage 4; E44.0 Moderate protein-calorie malnutrition; B37.0 Candidal stomatitis; D69.59 Other secondary thrombocytopenia; D68.9 Coagulation defect, unspecified; E87.2 Acidosis; D69.6 Thrombocytopenia, unspecified; G82.20 Paraplegia, unspecified; E87.6 Hypokalemia; N39.0 Urinary tract infection, site not specified; D63.8 Anemia in other chronic diseases classified elsewhere; N18.2 Chronic kidney disease, stage 2 (mild); I42.9 Cardiomyopathy, unspecified; B96.1 Klebsiella pneumoniae [K. pneumoniae] as the cause of diseases classified elsewhere; Z16.12 Extended spectrum beta lactamase (ESBL) resistance; R74.0 Nonspecific elevation of levels of transaminase and lactic acid dehydrogenase [LDH]; I50.9 Heart failure, unspecified; N13.8 Other obstructive and reflux uropathy; N31.9 Neuromuscular dysfunction of bladder, unspecified; I50.42 Chronic combined systolic (congestive) and diastolic (congestive) heart failure; Z86.718 Personal history of other venous thrombosis and embolism; Z82.49 Family history of ischemic heart disease and other diseases of the circulatory system; Z87.440 Personal history of urinary (tract) infections; Z74.01 Bed confinement status; Z79.899 Other long term (current) drug therapy; Z68.21 Body mass index [BMI] 21.0-21.9, adult; Z86.73 Personal history of transient ischemic attack (TIA), and cerebral infarction without residual deficits
CPT/HCPCS: 36415; 36600; 71045; 74176; 76937; 80048; 80053; 80061; 80076; 80202; 81003; 82375; 82550; 82805; 83605; 83735; 84100; 84134; 84443; 84484; 85025; 86359; 86360; 86705; 86709; 86803; 87077; 87186; 87340; 87493; 92610; 93005; 93970; 99291; C1725; J0456; J0692; J2185; J2543; J3370; J3475; J3480; J3490; J7030; J7050; J7060

== ENCOUNTER 2020-04-09 17:50 | Emergency (ER) | payer MEDICAID ==
[~2020-04-09] VITALS: Ht 167.6 cm; Wt 66.0 kg
[~2020-04-09 17:50] MED LIST changes: -CEPH250C2 MT
[2020-04-09 22:22] VITALS: BP 115/70
== END 2020-04-09 22:24 | disposition home or self-care (01) ==
LOC: ER 17:50
DX: T83.198A Other mechanical complication of other urinary devices and implants, initial encounter (principal); I49.9 Cardiac arrhythmia, unspecified; Z79.899 Other long term (current) drug therapy; Y92.89 Other specified places as the place of occurrence of the external cause
CPT/HCPCS: 51705; 93005; 99283; Z7610

== ENCOUNTER 2021-01-26 23:04 | Emergency (ER) | payer MEDICAID ==
[~2021-01-26] VITALS: Ht 170.2 cm; Wt 75.0 kg
[~2021-01-26 23:04] MED LIST changes: +PANT20TA17 PO; -PANT20TA3 PO
[2021-01-27] MEDS ORDERED: LIDOCAINE HCL 1% 20ML VIAL (Pyxis) INJ INFIL ONE (01:00)
[2021-01-27 01:47] VITALS: BP 115/61
== END 2021-01-27 01:48 | disposition home or self-care (01) ==
LOC: ER 23:04
DX: T83.098A Other mechanical complication of other urinary catheter, initial encounter (principal); G82.20 Paraplegia, unspecified; Y73.8 Miscellaneous gastroenterology and urology devices associated with adverse incidents, not elsewhere classified; Y92.018 Other place in single-family (private) house as the place of occurrence of the external cause
CPT/HCPCS: 99281; J3490

== ENCOUNTER 2021-02-11 18:10 | Emergency (ER) | payer MEDICAID, OTHER ==
[~2021-02-11] VITALS: Ht 170.2 cm; Wt 75.0 kg
[2021-02-12 00:50] VITALS: BP 112/87
== END 2021-02-12 01:18 | disposition home or self-care (01) ==
LOC: ER 18:10
DX: T83.038A Leakage of other urinary catheter, initial encounter (principal); S06.9X0S Unspecified intracranial injury without loss of consciousness, sequela; Z98.1 Arthrodesis status; Z99.3 Dependence on wheelchair; V49.9XXS Car occupant (driver) (passenger) injured in unspecified traffic accident, sequela; Y84.6 Urinary catheterization as the cause of abnormal reaction of the patient, or of later complication, without mention of misadventure at the time of the procedure; Y92.018 Other place in single-family (private) house as the place of occurrence of the external cause
CPT/HCPCS: 51702; 99284

== ENCOUNTER 2021-09-16 16:12 | Emergency (ER) | payer MEDICAID ==
[~2021-09-16] VITALS: Ht 170.2 cm; Wt 75.0 kg
[2021-09-16 18:13] LABS: CLARITY URINE CLOUDY (CLEAR); COLOR URINE YELLOW (YELLOW); KETONES URINE NEGATIVE (NEGATIVE); LEUKOCYTE ESTERASE URINE 3+ (NEGATIVE); NITRITE URINE NEGATIVE (NEGATIVE); OCCULT BLOOD URINE 1+ (NEGATIVE); PH URINE 6.5 (4.5-8.0); PROTEIN URINE 3+ (NEGATIVE); SPECIFIC GRAVITY URINE 1.014 (1.005-1.030)
[2021-09-16 19:52] LABS: BASOPHILS % 0.4 % (0.0-2.0); EOSINOPHILS % 1.9 % (0.0-5.0); HEMATOCRIT. 49.5 % (42.0-52.0); HEMOGLOBIN. 16.5 g/dL (14.0-18.0); MEAN CORPUSCULAR HEMOGLOBIN 30.2 pg (28.0-32.0); MEAN CORPUSCULAR VOLUME 90.9 fL (80.0-94.0); MONOCYTES % 14.7 % (2.0-8.0); PLATELET 144 x1000/uL (130-400); RED BLOOD CELL COUNT 5.45 mill/uL (4.7-6.1); RED CELL DISTRIBUTION WIDTH 15.1 % (11.6-14.6)
[2021-09-16 19:58] LABS: CHLORIDE 107 mEq/L (98-107)
[2021-09-16] MEDS ORDERED: CEFU500T41 MT (21:25)
[2021-09-16 21:32] VITALS: BP 108/52
== END 2021-09-16 21:32 | disposition home or self-care (01) ==
LOC: ER 16:12
DX: N39.0 Urinary tract infection, site not specified (principal)
CPT/HCPCS: 36415; 51702; 80053; 81003; 85025; 87077; 87186; 99284; A4315

== ENCOUNTER 2021-10-14 19:09 | Emergency (ER) | payer MEDICAID ==
[~2021-10-14] VITALS: Ht 170.2 cm; Wt 73.0 kg
[~2021-10-14 19:09] MED LIST changes: +CEFU500T41 MT
[2021-10-14 21:50] VITALS: BP 112/74
== END 2021-10-14 22:16 | disposition home or self-care (01) ==
LOC: ER 19:09
DX: Z46.6 Encounter for fitting and adjustment of urinary device (principal); Z98.890 Other specified postprocedural states
CPT/HCPCS: 51702; 99284; A4315

== ENCOUNTER 2022-08-29 17:54 | Emergency (ER) | payer MEDICAID ==
[~2022-08-29] VITALS: Ht 167.6 cm; Wt 80.0 kg
[2022-08-29 18:05] VITALS: BP 167/88
[2022-08-29] MEDS ORDERED: CEPH500C2 MT (20:00)
[2022-08-29] MEDS ORDERED: CEPHALEXIN 250MG CAPSULE PO ONE (20:00)
[2022-08-29 23:21] LABS: CLARITY URINE TURBID (CLEAR); COLOR URINE YELLOW (YELLOW); KETONES URINE NEGATIVE (NEGATIVE); LEUKOCYTE ESTERASE URINE 3+ (NEGATIVE); NITRITE URINE POSITIVE (NEGATIVE); OCCULT BLOOD URINE 3+ (NEGATIVE); PROTEIN URINE 3+ (NEGATIVE); SPECIFIC GRAVITY URINE 1.015 (1.005-1.030)
== END 2022-08-29 22:27 | disposition home or self-care (01) ==
LOC: ER 18:22
DX: N39.0 Urinary tract infection, site not specified (principal); G82.20 Paraplegia, unspecified; Z21 Asymptomatic human immunodeficiency virus [HIV] infection status
CPT/HCPCS: 81003; 99283; A4315

== ENCOUNTER 2023-03-26 13:49 | Emergency (ER) | payer MEDICAID ==
[~2023-03-26] VITALS: Ht 175.3 cm; Wt 72.0 kg
[~2023-03-26 13:49] MED LIST changes: +CEPH500C2 MT
[2023-03-26 14:48] VITALS: BP 110/49; PULSE 52; RESP 16; TEMP 98; O2SAT 100
== END 2023-03-26 16:38 | disposition home or self-care (01) ==
LOC: ER 13:49
DX: Z46.6 Encounter for fitting and adjustment of urinary device (principal)
CPT/HCPCS: 51702; 99284; Z7610 ×4; 99281; A4315

== ENCOUNTER 2023-05-11 19:32 | Emergency (ER) | payer MEDICAID ==
[~2023-05-11] VITALS: Ht 170.2 cm; Wt 78.0 kg
[~2023-05-11 19:32] MED LIST changes: -GABA-533 PO; +GABA-534 PO
[2023-05-11 20:19] VITALS: BP 101/35; O2SAT 99
[2023-05-11 23:36] LABS: CLARITY URINE TURBID (CLEAR); COLOR URINE YELLOW (YELLOW); GLUCOSE URINE NEGATIVE (NEGATIVE); KETONES URINE NEGATIVE (NEGATIVE); LEUKOCYTE ESTERASE URINE 3+ (NEGATIVE); NITRITE URINE NEGATIVE (NEGATIVE); OCCULT BLOOD URINE 3+ (NEGATIVE); PH URINE 5.5 (4.5-8.0); PROTEIN URINE 3+ (NEGATIVE); SPECIFIC GRAVITY URINE 1.008 (1.005-1.030); UROBILINOGEN URINE 0.2 E.U./dL (0.2-1.0)
[2023-05-12 00:07] LABS: BACTERIA URINE 3+; SQUAMOUS EPITHELIAL CELL URINE 1+ /lpf (RARE/1+); WBC URINE TNTC /hpf (0-2)
[2023-05-12] MEDS ORDERED: FURO10SO PO ×3 (00:28→00:36)
[2023-05-12] MEDS ORDERED: POTA20LI50 MT (00:28)
[2023-05-12] MEDS ORDERED: CIPR-263 MT (00:30)
[2023-05-12 00:39] VITALS: PULSE 70; RESP 15; TEMP 97.8
== END 2023-05-12 00:41 | disposition home or self-care (01) ==
LOC: ER 19:32
DX: T83.018A Breakdown (mechanical) of other urinary catheter, initial encounter (principal); N39.0 Urinary tract infection, site not specified; Z98.890 Other specified postprocedural states; X58.XXXA Exposure to other specified factors, initial encounter; Y93.89 Activity, other specified; Y92.89 Other specified places as the place of occurrence of the external cause; Y99.8 Other external cause status
CPT/HCPCS: 51702; 81003; 87077; 87186; 99284; A4315